=== PATIENT | female | born 1960 | race Caucasian/White ===

== ENCOUNTER → 2016-08-18 | Outpatient (CLI) | payer BC ==
--- NOTE | 2016-08-18 14:35 | CARD ---
APPROVED REPORT EXAM: Two-dimensional and M-mode echocardiogram with Doppler and color Doppler. Other Information Quality : GoodHR: 64bpm Rhythm : NSR INDICATION Atrial Fibrillation RISK FACTORS Hypertension Hyperlipidemia Family History 2D DIMENSIONS RVDd1.9 (2.9-3.5cm)Left Atrium(2D)3.6 (1.6-4.0cm) IVSd1.0 (0.7-1.1cm)Aortic Root(2D)2.8 (2.0-3.7cm) LVDd4.9 (3.9-5.9cm)LVOT Diameter2.0 (1.8-2.4cm) PWd1.0 (0.7-1.1cm)LVDs3.2 (2.5-4.0cm) FS (%) 34.0 %SV70.9 ml LVEF(%)62.7 (>50%) Aortic Valve AoV Peak Jose.129.9cm/sAoV VTI27.0cm AO Peak GR.6.7mmHgLVOT Peak Jose.106.2cm/s AO Mean GR.4mmHgAVA (VMAX)2.52cm2 Mitral Valve MV E Givaoztd93.3cm/sMV E Peak Gr.3mmHg MV DECEL [id number] A Urqihwrs89.9cm/s MV E Mean Gr.1mmHgE/A Ratio1.8 MV A [id number] Tricuspid Valve TR P. Omumdeek093pz/sTR Peak Gr.18mmHg Pulmonary Vein S1 Bjxedynr83.6cm/sD2 Fqgatzrs99.6cm/s PVa [id number] LEFT VENTRICLE The left ventricle is normal size. There is normal left ventricular wall thickness. The left ventricu lar systolic function is normal. The Ejection Fraction is 60-65%. There is normal LV segmental wall m otion. The left ventricular diastolic function and filling is normal for age. RIGHT VENTRICLE The right ventricle is normal size. There is normal right ventricular wall thickness. The right ventr icular systolic function is normal. ATRIA The left atrium size is normal. The right atrium size is normal. The interatrial septum is intact wit h no evidence for an atrial septal defect or patent foramen ovale as noted on 2-D or Doppler imaging. AORTIC VALVE The aortic valve is normal in structure and function. Doppler and Color Flow revealed no significant aortic regurgitation. There is no significant aortic valvular stenosis. There is no aortic valvular v egetation. MITRAL VALVE The mitral valve is normal in structure and function. There is no evidence of mitral valve prolapse. There is no mitral valve stenosis. Doppler and Color Flow revealed trace mitral regurgitation. TRICUSPID VALVE The tricuspid valve is normal in structure and function. Doppler and Color Flow revealed trace tricus pid regurgitation. The pulmonary artery systolic pressure is estimated at 23 mmHg. There is no tricus pid valve stenosis. PULMONIC VALVE The pulmonary valve is normal in structure and function. Doppler and Color Flow revealed no pulmonic valvular regurgitation. There is no pulmonic valvular stenosis. GREAT VESSELS The aortic root is normal in size. The ascending aorta is normal in size. The pulmonary artery is nor mal. The IVC is normal in size and collapses >50% with inspiration. PERICARDIAL EFFUSION There is no evidence of significant pericardial effusion. Critical Notification Critical Value: No <Conclusion> The left ventricular systolic function is normal. The Ejection Fraction is 60-65%. There is normal LV segmental wall motion. Trace mitral regurgitation. Trace tricuspid regurgitation. The pulmonary artery systolic pressure is estimated at 23 mmHg. There is no evidence of significant pericardial effusion.
== END | disposition home or self-care (01) ==
LOC: ECHO 10:55
PROVIDERS: ATTEND Internal Medicine Cardiovascular Disease
DX: I48.0 Paroxysmal atrial fibrillation (principal)
CPT/HCPCS: 93306

== ENCOUNTER → 2020-02-01 | Outpatient (CLI) | payer BC ==
--- NOTE | 2020-02-01 11:22 | CARD ---
MR#: [id number] Date of Study: 02/01/2020 Ordering Physician: PEG SANCHES, Referring Physician: PEG SANCHES, Tech: Jennifer Arreaga [facility] APPROVED REPORT EXAM: Two-dimensional and M-mode echocardiogram with Doppler and color Doppler. Other Information Quality : Good INDICATION Paroxysmal Atria Fibrillation 2D DIMENSIONS RVDd2.0 (2.9-3.5cm)Left Atrium(2D)3.0 (1.6-4.0cm) IVSd0.6 (0.7-1.1cm)Aortic Root(2D)2.7 (2.0-3.7cm) LVDd3.8 (3.9-5.9cm)LVOT Diameter1.9 (1.8-2.4cm) PWd0.6 (0.7-1.1cm)LVDs2.5 (2.5-4.0cm) FS (%) 33.4 %SV39.6 ml Aortic Valve AoV Peak Jose.119.8cm/sAoV VTI20.1cm AO Peak GR.5.7mmHgLVOT Peak Jose.114.9cm/s LVOT VTI 20.30cmAO Mean GR.3mmHg DOROTHEA (VMAX)2.78ok4NKA (VTI)3.01cm2 AI P 1/2 [id number] Mitral Valve MV E Ibpimjsk13.0cm/sMV DECEL [id number] MV A Igvkzunn85.8cm/sMV MZQ82fq E/A Ratio0.9MVA (PHT)3.07cm2 TDI E/Lateral E'8.0E/Medial E'11.2 Pulmonary Vein S1 Ayxnukln67.0cm/sD2 Vhkdiyrk53.2cm/s LEFT VENTRICLE The left ventricle is normal size. There is normal left ventricular wall thickness. The left ventricu lar systolic function is normal and the ejection fraction is within normal range. The Ejection Fracti on is 60-65%. There is normal LV segmental wall motion. Transmitral Doppler flow pattern is Grade I-a bnormal relaxation pattern. RIGHT VENTRICLE The right ventricle is normal size. The right ventricular systolic function is normal. ATRIA The left atrium size is normal. The right atrium size is normal. The interatrial septum is intact wit h no evidence for an atrial septal defect or patent foramen ovale as noted on 2-D or Doppler imaging. AORTIC VALVE The aortic valve is normal in structure and function. Doppler and Color Flow revealed trace aortic re gurgitation. There is no significant aortic valvular stenosis. MITRAL VALVE The mitral valve is normal in structure and function. There is no evidence of mitral valve prolapse. There is no mitral valve stenosis. Doppler and Color Flow revealed no mitral valve regurgitation note d. TRICUSPID VALVE The tricuspid valve is normal in structure and function. Doppler and Color Flow revealed no tricuspid valve regurgitation noted. There is no tricuspid valve stenosis. PULMONIC VALVE The pulmonic valve is not well visualized. Doppler and Color Flow revealed no pulmonic valvular regur gitation. There is no pulmonic valvular stenosis. GREAT VESSELS The aortic root is normal in size. The ascending aorta is not well seen. The IVC is normal in size an d collapses >50% with inspiration. PERICARDIAL EFFUSION There is no evidence of significant pericardial effusion. Critical Notification Critical Value: No <Conclusion> The left ventricle is normal size. The left ventricular systolic function is normal and the ejection fraction is within normal range. The Ejection Fraction is 60-65%. Doppler and Color Flow revealed trace aortic regurgitation. There is no significant aortic valvular stenosis. Doppler and Color Flow revealed no mitral valve regurgitation noted. Doppler and Color Flow revealed no tricuspid valve regurgitation noted. Signed by : César Valenzuela MD Electronically Approved : 02/01/2020 11:22:19
== END | disposition home or self-care (01) ==
LOC: ECHO 08:44
PROVIDERS: ATTEND Internal Medicine Cardiovascular Disease
DX: I48.0 Paroxysmal atrial fibrillation (principal)
CPT/HCPCS: 93306

== ENCOUNTER 2020-02-17 11:34 | Inpatient (IN) | payer BC ==
[~2020-02-17] VITALS: Ht 162.6 cm; Wt 80.0 kg
[2020-02-17] MEDS ORDERED: IV NORMAL SALINE 1000ML BAG 1,000 ML IV ONE ×3 (11:45→19:30)
--- NOTE | 2020-02-17 11:54 | PHYS DOC ---
Past Medical History Past Medical History: Cancer, Diabetes-Type II, Hypothyroid Additional Past Surgical Histo: Cranial carcinoma surgery Smoking Status: Never Smoker Alcohol Use: Occasionally Drug Use: None General Adult EDM: Chief Complaint: SYNCOPE HPI: HPI: Patient is a 59 year old [f__sex] who presents with [] Review of Systems: Review of Systems: Constitutional: Denies fever or chills Eyes: Denies redness or eye pain HENT: Denies nasal congestion or sore throat Respiratory: Denies cough or shortness of breath Cardiovascular: Denies chest pain or palpitations GI: Denies abdominal pain, nausea, or vomiting : Denies dysuria or hematuria Musculoskeletal: Denies back pain or joint pain Integument: Denies rash or skin lesions Neurologic: Denies headache, focal weakness or sensory changes Complete systems were reviewed and found to be within normal limits, except as documented in this note. Current Medications: Current Medications Medications (Trade) Dose Ordered Sig/Valerie Start Time Stop Time Status Last Admin Dose Admin Sodium Chloride 1,000 ml @ 1,000 mls/hr 1X ONCE 02/17/20 11:45 02/17/20 12:44 UNV Physical Exam: PE: Constitutional: Well developed, well nourished, no acute distress, non-toxic appearance HENT: Normocephalic, atraumatic, oropharynx moist Eyes: PERRL, EOMI, conjunctiva normal, no discharge Neck: Normal range of motion, no tenderness, supple Cardiovascular: Heart rate normal, regular rhythm Lungs & Thorax: Bilateral breath sounds clear to auscultation, no wheezing Abdomen: Soft, no tenderness Skin: Warm, dry, no erythema, no rash Back: No tenderness, no CVA tenderness Extremities: No tenderness, ROM intact, no edema Neurologic: Alert and oriented X 3, normal motor function, normal sensory function, no focal deficits noted Psychologic: Affect normal, judgment normal EKG: EKG: @1148 Sinus tachycardia at 107bpm, NO ST elevation, QRS 86ms, QT/QTc 322/435ms Radiology/Procedures: Radiology/Procedures: PROCEDURE: CT HEAD AND CERVICAL SPINE WO EXAM: CT Head without IV contrast INDICATION: Reason: syncope, head pain, neck pain / Spl. Instructions: / History: TECHNIQUE: Multi-detector row CT images were obtained of the head without the use of IV contrast. All CT scans performed at this facility utilize dose optimization techniques as appropriate to the exam, including the following: Automated exposure control and adjustment of the mA and/or KV according to patient size (this includes techniques or standardized protocols for targeted exams where dose is indication/reason for exam). COMPARISON: None FINDINGS: BRAIN PARENCHYMA: No evidence of acute intraparenchymal hemorrhage or infarct. No abnormal parenchymal density or mass. VENTRICLES & EXTRA-AXIAL SPACES: Ventricles are within normal limits. Basilar cisterns are patent. No pathologic extra-axial fluid collection or mass. ORBITS: Orbital contents are unremarkable. SINUSES: Visualized paranasal sinuses and mastoid air cells are clear. OSSEOUS & SOFT TISSUES: Calvarium and skull base are intact. IMPRESSION: No acute intracranial pathology. EXAM: CT Cervical Spine without IV contrast INDICATION: Reason: syncope, head pain, neck pain / Spl. Instructions: / History: TECHNIQUE: Multi-detector row CT images were obtained through the cervical spine without the use of IV contrast. Post-processing sagittal and coronal reconstructed images were obtained for interpretation. All CT scans performed at this facility utilize dose optimization techniques as appropriate to the exam, including the following: Automated exposure control and adjustment of the mA and/or KV according to patient size (this includes techniques or standardized protocols for targeted exams where dose is indication/reason for exam). COMPARISON: None FINDINGS: CRANIOCERVICAL JUNCTION: Unremarkable. ALIGNMENT: Mild reversal of cervical lordosis in the setting of multilevel cervical degenerative spondylosis. OSSEOUS: No evidence of fracture or bone destruction. There is evidence of mild ossification of posterior longitudinal ligament at C6. DISC SPACES: Multilevel disc degenerative changes are present FACET JOINTS: Unremarkable. SPINAL CANAL: Unremarkable. NEUROFORAMINA: Unremarkable. SOFT TISSUES: Unremarkable. Incidentally, the spinous process of C7 is partially excluded. IMPRESSION: Multilevel cervical degenerative spondylosis with no acute traumatic finding shown on CT. Electronically signed by: Catalino Romero MD (02/17/2020 12:28 PM) [id number] PROCEDURE: CHEST AP ONLY Single view chest dated 02/17/2020: No comparison available. Clinical Indication: Syncope. Findings: Single upright portable exam of the chest was performed. Heart size and mediastinal contours are within normal limits given technique. The lungs are clear without evidence of focal consolidation. Vascular interstitium is within normal limits. Impression:: Negative portable chest. Electronically signed by: Norris Yoon MD (02/17/2020 12:11 PM) [id number] Course & Med Decision Making: Course & Med Decision Making Pertinent Labs and Imaging studies reviewed. (See chart for details) [] Franci Disclaimer: Franci Disclaimer: This electronic medical record was generated, in whole or in part, using a voice recognition dictation system. Departure Departure Impression: Primary Impression: Syncope Qualified Codes: R55 - Syncope and collapse Additional Impressions: Hypothermia Qualified Codes: T68.XXXA - Hypothermia, initial encounter Small bowel obstruction Suspected 2019 novel coronavirus infection Referrals: JOE MCKENNA MD (PCP) Justicifation of Admission Dx: Justifications for Admission: Justification of Admission Dx: Yes Sepsis: End-Organ Dysfunction Comments: SBO, Septic shock COVID-19 Assessment: COVID-19 Patient Risks: Age 65 or older: No Sign of co-morbidity: No Exp to person + for COVID: No Exp to PUI: No Travel from affected area: No Lower respiratory symptoms: No Fever: Yes (Hypothermia) Other: Yes (Nausea and vomiting) PPE Use: Full PPE with N95 mask or PAPR: Yes Date and Time of Reassessment Date: Feb 17, 2020 Time: 15:40 Fluid Challenge Is the fluid challenge complet: No IBW Target Volume Used: Yes BMI > 30: Yes Vital Signs Vital Signs: Vital Signs Date Time Temp Pulse Resp B/P (MAP) Pulse Ox O2 Delivery O2 Flow Rate FiO2 02/18/20 11:03 79 18 143/69 (93) 100 Room Air 02/18/20 07:34 98.6 98.6 Temperature Source: Oral Respirations Respiratory Effort: Normal Cardiovascular Pulse Rhythm: Regular Heart: Nml S1, S2, no murmurs Lung Sounds Breath Sounds: Coarse Capillary Refil Capillary Refill: Rt Hand < 3 seconds Peripheral Pulse Pulse Location: Radial Pulse Strength: Normal (2+) Pulse Assessment Method: Palpation Integumentary Skin: Dry, Cool Skin Moisture: Dry Skin Turgor: Normal Skin Color: dry Fingernail Color: WNL Critical Care Time Critical care time was 30 minutes which includes time at bedside, spent in discussion of patient's care with specialists and/or family members, with interpretation of laboratory and/or radiological studies and is exclusive of procedures. NORRIS CANSECO DO Feb 17, 2020 11:54
--- NOTE | 2020-02-17 12:14 | RAD ---
Single view chest dated 02/17/2020: No comparison available. Clinical Indication: Syncope. Findings: Single upright portable exam of the chest was performed. Heart size and mediastinal contours are within normal limits given technique. The lungs are clear without evidence of focal consolidation. Vascular interstitium is within normal limits. Impression:: Negative portable chest. Electronically signed by: Norris Yoon MD (02/17/2020 12:11 PM) [id number]
[2020-02-17] MEDS ORDERED: ONDANSETRON PF 4 MG/2 ML VIAL. IVP ONE (12:15)
[2020-02-17] MEDS ORDERED: FAMOTIDINE 20 MG/2 ML VIAL IVP ONE (12:15)
--- NOTE | 2020-02-17 12:31 | RAD ---
EXAM: CT Head without IV contrast INDICATION: Reason: syncope, head pain, neck pain / Spl. Instructions: / History: TECHNIQUE: Multi-detector row CT images were obtained of the head without the use of IV contrast. All CT scans performed at this facility utilize dose optimization techniques as appropriate to the exam, including the following: Automated exposure control and adjustment of the mA and/or KV according to patient size (this includes techniques or standardized protocols for targeted exams where dose is indication/reason for exam). COMPARISON: None FINDINGS: BRAIN PARENCHYMA: No evidence of acute intraparenchymal hemorrhage or infarct. No abnormal parenchymal density or mass. VENTRICLES & EXTRA-AXIAL SPACES: Ventricles are within normal limits. Basilar cisterns are patent. No pathologic extra-axial fluid collection or mass. ORBITS: Orbital contents are unremarkable. SINUSES: Visualized paranasal sinuses and mastoid air cells are clear. OSSEOUS & SOFT TISSUES: Calvarium and skull base are intact. IMPRESSION: No acute intracranial pathology. EXAM: CT Cervical Spine without IV contrast INDICATION: Reason: syncope, head pain, neck pain / Spl. Instructions: / History: TECHNIQUE: Multi-detector row CT images were obtained through the cervical spine without the use of IV contrast. Post-processing sagittal and coronal reconstructed images were obtained for interpretation. All CT scans performed at this facility utilize dose optimization techniques as appropriate to the exam, including the following: Automated exposure control and adjustment of the mA and/or KV according to patient size (this includes techniques or standardized protocols for targeted exams where dose is indication/reason for exam). COMPARISON: None FINDINGS: CRANIOCERVICAL JUNCTION: Unremarkable. ALIGNMENT: Mild reversal of cervical lordosis in the setting of multilevel cervical degenerative spondylosis. OSSEOUS: No evidence of fracture or bone destruction. There is evidence of mild ossification of posterior longitudinal ligament at C6. DISC SPACES: Multilevel disc degenerative changes are present FACET JOINTS: Unremarkable. SPINAL CANAL: Unremarkable. NEUROFORAMINA: Unremarkable. SOFT TISSUES: Unremarkable. Incidentally, the spinous process of C7 is partially excluded. IMPRESSION: Multilevel cervical degenerative spondylosis with no acute traumatic finding shown on CT. Electronically signed by: Catalino Romero MD (02/17/2020 12:28 PM) [id number]
[2020-02-17] MEDS ORDERED: diphenhydrAMINE 50 MG/ML VIAL IVP ONE (14:00)
[2020-02-17] MEDS ORDERED: METOCLOPRAMIDE HCL 10 MG/2 ML VIAL. IVP ONE (14:00)
[2020-02-17 14:20] LABS: BASO # 0.1 x10^3/uL (0.0-0.2); BASO % 0 % (0-3); EOS % 0 % (0-3); HEMATOCRIT 52.7 % (36.0-47.0); HEMOGLOBIN 17.8 g/dL (12.0-15.5); LYMPH # 1.6 x10^3/uL (1.0-4.8); LYMPH % 11 % (24-48); MEAN CORPUSCULAR HEMOGLOBIN 30 pg (25-35); MEAN CORPUSCULAR HGB CONC 34 g/dL (31-37); MEAN CORPUSCULAR VOLUME 88 fL (79-100); MONO # 0.6 x10^3/uL (0.0-1.1); MONO % 4 % (0-9); NEUT # 12.4 x10^3/uL (1.8-7.7); NEUT % 85 % (31-73); PLATELET COUNT 187 x10^3/uL (140-400); RED CELL DISTRIBUTION WIDTH 14.1 % (11.5-14.5); WHITE BLOOD COUNT 14.7 x10^3/uL (4.0-11.0)
[2020-02-17 14:23] LABS: CALCIUM 10.2 mg/dL (8.5-10.1); CREATININE 1.2 mg/dL (0.6-1.0); GFR 46.1; POTASSIUM 4.8 mmol/L (3.5-5.1)
[2020-02-17 14:35] LABS: ALBUMIN 4.6 g/dL (3.4-5.0); MAGNESIUM 2.7 mg/dL (1.8-2.4); TOTAL PROTEIN 9.2 g/dL (6.4-8.2)
[2020-02-17] MEDS ORDERED: IV NORMAL SALINE 500ML BAG 500 ML IV ONE (15:15)
[2020-02-17] MEDS ORDERED: PIPERACILLIN/TAZOBACTAM 4.5 GM in IV NORMAL SALINE 100ML 100 ML IV ONE (15:15)
[2020-02-17] MEDS ORDERED: IOHEXOL 300 MG/ML 100ML VIAL. IV ONE (15:30)
[2020-02-17 15:33] LABS: BILIRUBIN,URINE NEGATIVE (NEG); CLARITY,URINE CLEAR; COLOR,URINE YELLOW; NITRITE,URINE NEGATIVE (NEG); PH,URINE 5.5 (<5.0-8.0); PROTEIN,URINE 30 mg/dL (NEG-TRACE); UROBILINOGEN,URINE 0.2 mg/dL (0.2 mg/dL)
[2020-02-17 15:39] LABS: SQUAMOUS EPITHELIAL CELL,UR MOD /LPF
[2020-02-17 15:40] LABS: BACTERIA,URINE MODERATE /HPF (0-FEW)
[2020-02-17 15:41] LABS: RBC,URINE 0 /HPF (0-2); WBC,URINE OCC /HPF (0-4)
[2020-02-17 15:42] LABS: YEAST,URINE PRESENT /HPF
--- NOTE | 2020-02-17 16:06 | RAD ---
EXAM: CT Chest, Abdomen, and Pelvis with IV contrast INDICATION: Reason: hypothermia, lactic acidosis, N/V / Spl. Instructions: IV OMNI 300 60 MLS / History: TECHNIQUE: Multi-detector row CT images were acquired from the thoracic inlet through the ischial tuberosities with the use of IV contrast. Sagittal and coronal images were acquired from the transaxial data. All CT scans performed at this facility utilize dose optimization techniques as appropriate to the exam, including the following: Automated exposure control and adjustment of the mA and/or KV according to patient size (this includes techniques or standardized protocols for targeted exams where dose is indication/reason for exam). IV CONTRAST: Administered ORAL CONTRAST: Not administered COMPARISON: None FINDINGS: CHEST: CARDIOVASCULAR: Unremarkable MEDIASTINUM & GM: No adenopathy or masses. Mild diffuse nonspecific thickening of the thoracic esophageal wall. LUNGS: No pulmonary infiltrate, nodule, or other focal abnormality. PLEURAL SPACE: No pleural effusions or pneumothorax. OSSEOUS & SOFT TISSUE: Unremarkable ABDOMEN/PELVIS: LIVER: Unremarkable BILIARY SYSTEM: Cholecystectomy. Bile ducts are not dilated. PANCREAS: Unremarkable SPLEEN: Unremarkable ADRENALS: Unremarkable KIDNEYS & URETERS: Unremarkable BLADDER: Unremarkable REPRODUCTIVE ORGANS: Absent uterus. Nonvisualized right ovary. Unremarkable left adnexa suggesting an atrophic left ovary. No adnexal mass. GASTROINTESTINAL: Stomach shows surgical changes from previous gastric sleeve procedure. There is fluid distention of multiple small bowel loops without wall thickening or mesenteric soft tissue stranding. There is collapse of the distal small bowel loops. Transition point is suspected in the right upper quadrant abdomen (coronal image 26 of series 8). The appendix is not definitively identified but there are no findings suggestive of acute appendicitis. MESENTERY/PERITONEUM/RETROPERITONEUM: Unremarkable VASCULAR: Slitlike IVC. Unremarkable abdominal aorta. LYMPH NODES: No adenopathy OSSEOUS & SOFT TISSUES: Unremarkable IMPRESSION: 1. No acute pathology in the chest with nonspecific mild wall thickening of the thoracic esophagus noted incidentally. 2. Previous gastric sleeve procedure with findings of small bowel obstruction, possible transition point in the right mid abdomen. No findings of bowel perforation or abscess formation. 3. Slitlike IVC, potential sign of intravascular volume depletion. Electronically signed by: Catalino Romero MD (02/17/2020 4:03 PM) [id number]
[2020-02-17] MEDS ORDERED: DEXTROSE 50% 25 GM / 50ML DISP.SYRIN. IV PRN (16:15)
[2020-02-17] MEDS ORDERED: ONDANSETRON PF 4 MG/2 ML VIAL. IV PRN ×2 (16:15→18:45)
[2020-02-17] MEDS: INSULIN LISPRO 300 UNITS/3 ML VIAL. SQ SCH (17:00)
[2020-02-17 17:35] VITALS: BP 149/87
--- NOTE | 2020-02-17 17:35 | NUR ---
Patient arrived via cart from ED with RENETTA Mathis. Patient able to ambulate to bed with assistance, patient placed on monitor and admission questions asked. Dr. Robles paged for orders.
[2020-02-17] MEDS: IV NORMAL SALINE 1000ML BAG 1,000 ML IV SCH (18:45)
[2020-02-17] MEDS ORDERED: MORPHINE SULFATE 2 MG/ML VIAL. IV PRN (18:45)
[2020-02-17 19:00] VITALS: BP 116/68
[2020-02-17 20:00] VITALS: BP 126/75
[2020-02-17 21:00] VITALS: BP 137/74
--- NOTE | 2020-02-17 21:21 | PDOC2 ---
CONSULT Date of Consult Date of Consult DATE: 02/17/20 TIME: 21:17 Reason for Consult Reason for Consult: N/V, syncope Referring Physician Referring Physician: Dr. Nunes Identification/Chief Complaint Chief Complaint N/V, syncope Source Source: Chart review, Patient History of Present Illness Reason for Visit: 59 yo F with c/o N/V with resultant syncope. Denies previous episodes. Has been passing flatus and stools. Seen in ICU and reports feeling better. Denies significant abd pain. N/V currently resolved. Past Medical History Endocrine: Diabetes Past Surgical History Past Surgical History: Cholecystectomy, Hysterectomy, Other (gastric sleeve) Family History Family History: No Significant Social History No ALCOHOL: rare Current Problem List Problem List Problems Medical Problems: (1) Hypothermia Status: Acute (2) Small bowel obstruction Status: Acute (3) Syncope Status: Acute Current Medications Current Medications Current Medications Sodium Chloride 1,000 ml @ 1,000 mls/hr 1X ONCE IV Last administered on 02/17/20at 12:22; Start 02/17/20 at 11:45; Stop 02/17/20 at 12:44; Status DC Famotidine (Pepcid Vial) 20 mg 1X ONCE IVP Last administered on 02/17/20at 12:22; Start 02/17/20 at 12:15; Stop 02/17/20 at 12:16; Status DC Ondansetron HCl (Zofran) 4 mg 1X ONCE IVP Last administered on 02/17/20at 12:22; Start 02/17/20 at 12:15; Stop 02/17/20 at 12:16; Status DC Metoclopramide HCl (Reglan Vial) 10 mg 1X ONCE IVP Last administered on 02/17/20at 14:05; Start 02/17/20 at 14:00; Stop 02/17/20 at 14:01; Status DC Diphenhydramine HCl (Benadryl) 25 mg 1X ONCE IVP Last administered on 02/17/20at 14:05; Start 02/17/20 at 14:00; Stop 02/17/20 at 14:01; Status DC Piperacillin Sod/ Tazobactam Sod 4.5 gm/Sodium Chloride 100 ml @ 200 mls/hr 1X ONCE IV Last administered on 02/17/20at 16:09; Start 7/12/20 at 15:15; Stop 02/17/20 at 15:44; Status DC Sodium Chloride 1,000 ml @ 1,000 mls/hr 1X ONCE IV Last administered on 02/17/20at 16:10; Start 02/17/20 at 15:15; Stop 02/17/20 at 16:14; Status DC Sodium Chloride 500 ml @ 500 mls/hr 1X ONCE IV ; Start 02/17/20 at 15:15; Stop 02/17/20 at 16:14; Status DC Iohexol (Omnipaque 300 Mg/ml) 60 ml 1X ONCE IV ; Start 02/17/20 at 15:30; Stop 02/17/20 at 15:33; Status DC Ondansetron HCl (Zofran) 4 mg PRN Q8HRS PRN IV NAUSEA/VOMITING; Start 02/17/20 at 16:15; Stop 02/17/20 at 18:37; Status DC Insulin Human Lispro (HumaLOG) 0-5 UNITS TIDWMEALS SQ ; Start 02/17/20 at 17:00 Dextrose (Dextrose 50%-Water Syringe) 12.5 gm PRN Q15MIN PRN IV SEE COMMENTS; Start 02/17/20 at 16:15 Ondansetron HCl (Zofran) 4 mg PRN Q4HRS PRN IV NAUSEA/VOMITING; Start 02/17/20 at 18:45; Stop 02/18/20 at 18:44 Sodium Chloride 1,000 ml @ 150 mls/hr Q6H40M IV ; Start 02/17/20 at 18:45 Morphine Sulfate (Morphine Sulfate) 2 mg PRN Q2HR PRN IV PAIN; Start 02/17/20 at 18:45 Sodium Chloride 1,000 ml @ 1,000 mls/hr 1X ONCE IV ; Start 02/17/20 at 19:30; Stop 02/17/20 at 20:29; Status DC Allergies Allergies: Coded Allergies: No Known Drug Allergies (Unverified , 02/17/20) ROS Gastrointestinal: Yes Nausea, Yes Vomiting Neurological: Yes Other (syncope) Physical Exam General: Alert, Oriented X3, Cooperative, No acute distress HEENT: Atraumatic Lungs: Normal air movement Abdomen: Soft, No tenderness Extremities: No clubbing, No cyanosis Skin: No rashes, No breakdown Neuro: Normal speech, Sensation intact Psych/Mental Status: Mental status NL, Mood NL Vitals VITALS Vital Signs Date Time Temp Pulse Resp B/P (MAP) Pulse Ox O2 Delivery O2 Flow Rate FiO2 02/17/20 17:35 Room Air 02/17/20 17:35 98.3 100 27 149/87 (107) 100 98.3 Labs Labs Laboratory Tests Test 02/17/20 13:30 02/17/20 13:50 02/17/20 15:25 02/17/20 17:40 Sodium Level 136 mmol/L (136-145) Potassium Level 4.8 mmol/L (3.5-5.1) Chloride Level 97 mmol/L (98-107) Carbon Dioxide Level 23 mmol/L (21-32) Anion Gap 16 (6-14) Blood Urea Nitrogen 12 mg/dL (7-20) Creatinine 1.2 mg/dL (0.6-1.0) Estimated GFR (Cockcroft-Gault) 46.1 BUN/Creatinine Ratio 10 (6-20) Glucose Level 268 mg/dL (70-99) Calcium Level 10.2 mg/dL (8.5-10.1) Magnesium Level 2.7 mg/dL (1.8-2.4) Total Bilirubin 1.0 mg/dL (0.2-1.0) Aspartate Amino Transf (AST/SGOT) 30 U/L (15-37) Alanine Aminotransferase (ALT/SGPT) 37 U/L (14-59) Alkaline Phosphatase 86 U/L (46-116) Creatine Kinase 115 U/L (26-192) Creatine Kinase MB (Mass) 5.2 ng/mL (0.0-3.6) Creatine Kinase MB Relative Index 4.5 % (0-4) Troponin I Quantitative < 0.017 ng/mL (0.000-0.055) Total Protein 9.2 g/dL (6.4-8.2) Albumin 4.6 g/dL (3.4-5.0) Albumin/Globulin Ratio 1.0 (1.0-1.7) Acetone Level Neg (NEG) White Blood Count 14.7 x10^3/uL (4.0-11.0) Red Blood Count 6.00 x10^6/uL (3.50-5.40) Hemoglobin 17.8 g/dL (12.0-15.5) Hematocrit 52.7 % (36.0-47.0) Mean Corpuscular Volume 88 fL (79-100) Mean Corpuscular Hemoglobin 30 pg (25-35) Mean Corpuscular Hemoglobin Concent 34 g/dL (31-37) Red Cell Distribution Width 14.1 % (11.5-14.5) Platelet Count 187 x10^3/uL (140-400) Neutrophils (%) (Auto) 85 % (31-73) Lymphocytes (%) (Auto) 11 % (24-48) Monocytes (%) (Auto) 4 % (0-9) Eosinophils (%) (Auto) 0 % (0-3) Basophils (%) (Auto) 0 % (0-3) Neutrophils # (Auto) 12.4 x10^3/uL (1.8-7.7) Lymphocytes # (Auto) 1.6 x10^3/uL (1.0-4.8) Monocytes # (Auto) 0.6 x10^3/uL (0.0-1.1) Eosinophils # (Auto) 0.0 x10^3/uL (0.0-0.7) Basophils # (Auto) 0.1 x10^3/uL (0.0-0.2) Lactic Acid Level 4.9 mmol/L (0.4-2.0) 5.3 mmol/L (0.4-2.0) Urine Collection Type Unknown Urine Color Yellow Urine Clarity Clear Urine pH 5.5 (<5.0-8.0) Urine Specific [place] >=1.030 (1.000-1.030) Urine Protein 30 mg/dL (NEG-TRACE) Urine Glucose (UA) >=1000 mg/dL (NEG) Urine Ketones (Stick) 15 mg/dL (NEG) Urine Blood Negative (NEG) Urine Nitrite Negative (NEG) Urine Bilirubin Negative (NEG) Urine Urobilinogen Dipstick 0.2 mg/dL (0.2 mg/dL) Urine Leukocyte Esterase Negative (NEG) Urine RBC 0 /HPF (0-2) Urine WBC Occ /HPF (0-4) Urine Squamous Epithelial Cells Mod /LPF Urine Bacteria Moderate /HPF (0-FEW) Urine Mucus Mod /LPF Urine Yeast Present /HPF Test 02/17/20 18:50 02/17/20 20:19 Troponin I Quantitative < 0.017 ng/mL (0.000-0.055) Glucose (Fingerstick) 171 mg/dL (70-99) Laboratory Tests Test 02/17/20 13:30 02/17/20 13:50 02/17/20 15:25 02/17/20 17:40 Sodium Level 136 mmol/L (136-145) Potassium Level 4.8 mmol/L (3.5-5.1) Chloride Level 97 mmol/L (98-107) Carbon Dioxide Level 23 mmol/L (21-32) Anion Gap 16 (6-14) Blood Urea Nitrogen 12 mg/dL (7-20) Creatinine 1.2 mg/dL (0.6-1.0) Estimated GFR (Cockcroft-Gault) 46.1 BUN/Creatinine Ratio 10 (6-20) Glucose Level 268 mg/dL (70-99) Calcium Level 10.2 mg/dL (8.5-10.1) Magnesium Level 2.7 mg/dL (1.8-2.4) Total Bilirubin 1.0 mg/dL (0.2-1.0) Aspartate Amino Transf (AST/SGOT) 30 U/L (15-37) Alanine Aminotransferase (ALT/SGPT) 37 U/L (14-59) Alkaline Phosphatase 86 U/L (46-116) Creatine Kinase 115 U/L (26-192) Creatine Kinase MB (Mass) 5.2 ng/mL (0.0-3.6) Creatine Kinase MB Relative Index 4.5 % (0-4) Troponin I Quantitative < 0.017 ng/mL (0.000-0.055) Total Protein 9.2 g/dL (6.4-8.2) Albumin 4.6 g/dL (3.4-5.0) Albumin/Globulin Ratio 1.0 (1.0-1.7) Acetone Level Neg (NEG) White Blood Count 14.7 x10^3/uL (4.0-11.0) Red Blood Count 6.00 x10^6/uL (3.50-5.40) Hemoglobin 17.8 g/dL (12.0-15.5) Hematocrit 52.7 % (36.0-47.0) Mean Corpuscular Volume 88 fL (79-100) Mean Corpuscular Hemoglobin 30 pg (25-35) Mean Corpuscular Hemoglobin Concent 34 g/dL (31-37) Red Cell Distribution Width 14.1 % (11.5-14.5) Platelet Count 187 x10^3/uL (140-400) Neutrophils (%) (Auto) 85 % (31-73) Lymphocytes (%) (Auto) 11 % (24-48) Monocytes (%) (Auto) 4 % (0-9) Eosinophils (%) (Auto) 0 % (0-3) Basophils (%) (Auto) 0 % (0-3) Neutrophils # (Auto) 12.4 x10^3/uL (1.8-7.7) Lymphocytes # (Auto) 1.6 x10^3/uL (1.0-4.8) Monocytes # (Auto) 0.6 x10^3/uL (0.0-1.1) Eosinophils # (Auto) 0.0 x10^3/uL (0.0-0.7) Basophils # (Auto) 0.1 x10^3/uL (0.0-0.2) Lactic Acid Level 4.9 mmol/L (0.4-2.0) 5.3 mmol/L (0.4-2.0) Urine Collection Type Unknown Urine Color Yellow Urine Clarity Clear Urine pH 5.5 (<5.0-8.0) Urine Specific [place] >=1.030 (1.000-1.030) Urine Protein 30 mg/dL (NEG-TRACE) Urine Glucose (UA) >=1000 mg/dL (NEG) Urine Ketones (Stick) 15 mg/dL (NEG) Urine Blood Negative (NEG) Urine Nitrite Negative (NEG) Urine Bilirubin Negative (NEG) Urine Urobilinogen Dipstick 0.2 mg/dL (0.2 mg/dL) Urine Leukocyte Esterase Negative (NEG) Urine RBC 0 /HPF (0-2) Urine WBC Occ /HPF (0-4) Urine Squamous Epithelial Cells Mod /LPF Urine Bacteria Moderate /HPF (0-FEW) Urine Mucus Mod /LPF Urine Yeast Present /HPF Test 02/17/20 18:50 02/17/20 20:19 Troponin I Quantitative < 0.017 ng/mL (0.000-0.055) Glucose (Fingerstick) 171 mg/dL (70-99) Images Images Ct with concern for SB dilation, IVC small c/w dehydration Assessment/Plan Assessment/Plan N/V with resultant dehydration resulting in syncope agree with ICU observation and hydration. No immediate surgical plans, benign abd. Thanks for consult! NATIVIDAD CUNNINGHAM MD Feb 17, 2020 21:21
[2020-02-17 22:00] VITALS: BP 128/79
[2020-02-17 23:00] VITALS: BP 136/74
[2020-02-18] VITALS (15 sets, daily range): BP systolic 115–152; BP diastolic 63–74
[2020-02-18] MEDS: IV NORMAL SALINE 1000ML BAG 1,000 ML IV SCH ×2 (01:41→08:42)
[2020-02-18 05:52] LABS: BASO # 0.1 x10^3/uL (0.0-0.2); BASO % 1 % (0-3); EOS % 1 % (0-3); HEMATOCRIT 41.1 % (36.0-47.0); HEMOGLOBIN 13.9 g/dL (12.0-15.5); LYMPH # 1.3 x10^3/uL (1.0-4.8); LYMPH % 16 % (24-48); MEAN CORPUSCULAR HEMOGLOBIN 29 pg (25-35); MEAN CORPUSCULAR HGB CONC 34 g/dL (31-37); MEAN CORPUSCULAR VOLUME 87 fL (79-100); MONO # 0.6 x10^3/uL (0.0-1.1); MONO % 7 % (0-9); NEUT # 6.2 x10^3/uL (1.8-7.7); NEUT % 76 % (31-73); PLATELET COUNT 149 x10^3/uL (140-400); RED BLOOD COUNT 4.72 x10^6/uL (3.50-5.40); RED CELL DISTRIBUTION WIDTH 14.1 % (11.5-14.5); WHITE BLOOD COUNT 8.1 x10^3/uL (4.0-11.0)
[2020-02-18 06:21] LABS: ALBUMIN 3.1 g/dL (3.4-5.0); ALBUMIN/GLOBULIN RATIO 0.9 (1.0-1.7); CREATININE 0.9 mg/dL (0.6-1.0); GFR 64.3; POTASSIUM 4.8 mmol/L (3.5-5.1); TOTAL BILIRUBIN 0.7 mg/dL (0.2-1.0); TOTAL PROTEIN 6.6 g/dL (6.4-8.2)
[2020-02-18] MEDS: INSULIN LISPRO 300 UNITS/3 ML VIAL. SQ SCH ×2 (08:00→12:00)
--- NOTE | 2020-02-18 08:48 | PDOC1 ---
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 EMS reports there was a hole in the drywall where pt his her head. unknown LOC. pt reporting fatigue, heartburn and nausea and vomiting x 4 on 02/17/2020. She suddenly started feeling nauseated at 10 AM on 02/17/2020. Last meal was on 02/16/2020 in the afternoon she had reheated pizza and ice cream, noted the pizza tasted "off". She ate home-cooked eggs and hashbrowns for breakfast on 02/16/2020 her also ate this and he has not been feeling any symptoms. CT head negative, CT abdomen pelvis made note of gastric sleeve and possible small bowel obstruction with transition point in the mid abdomen. She has been passing gas no bowel movement however she did have a bowel movement on Tuesday. Noted initially diaphoretic - oral/axillary temp of 90.5, rectal of 96.8. Sinus tachycardia at 107bpm, NO ST elevation, QRS 86ms, QT/QTc 322/435ms WBC 14.7, Hb 17.8, platelets 187, NA 136, K4.8, BUN 12, CR 1.2, lactate 5.3, calcium 10.2 mag 2.7, troponin negative x3, albumin 3.1, glucose 268. Had been seen by surgery when admitted on 02/17/2020 and recommended n.p.o. for the possible SBO. 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 Seen bedside for H&P today. Today WBC normalized labs all improved on IV fluids. She has no further nausea no further vomiting and is passing flatus. She is asking for a diet now. Past Medical History Endocrine: Diabetes, Hypothyroidism Past Surgical History Past Surgical History: Cholecystectomy, Hysterectomy, Other (gastric sleeve) Family History Family History: No Significant Social History Smoke: No ALCOHOL: rare Current Problem List Problem List Problems Medical Problems: (1) Hypothermia Status: Acute (2) Small bowel obstruction Status: Acute (3) Syncope Status: Acute Current Medications Current Medications Current Medications Sodium Chloride 1,000 ml @ 1,000 mls/hr 1X ONCE IV Last administered on 02/17/20at 12:22; Start 02/17/20 at 11:45; Stop 02/17/20 at 12:44; Status DC Famotidine (Pepcid Vial) 20 mg 1X ONCE IVP Last administered on 02/17/20at 12:22; Start 02/17/20 at 12:15; Stop 02/17/20 at 12:16; Status DC Ondansetron HCl (Zofran) 4 mg 1X ONCE IVP Last administered on 02/17/20at 12:22; Start 02/17/20 at 12:15; Stop 02/17/20 at 12:16; Status DC Metoclopramide HCl (Reglan Vial) 10 mg 1X ONCE IVP Last administered on 02/17/20at 14:05; Start 02/17/20 at 14:00; Stop 02/17/20 at 14:01; Status DC Diphenhydramine HCl (Benadryl) 25 mg 1X ONCE IVP Last administered on 02/17/20at 14:05; Start 02/17/20 at 14:00; Stop 02/17/20 at 14:01; Status DC Piperacillin Sod/ Tazobactam Sod 4.5 gm/Sodium Chloride 100 ml @ 200 mls/hr 1X ONCE IV Last administered on 02/17/20at 16:09; Start 02/17/20 at 15:15; Stop 02/17/20 at 15:44; Status DC Sodium Chloride 1,000 ml @ 1,000 mls/hr 1X ONCE IV Last administered on 02/17/20at 16:10; Start 02/17/20 at 15:15; Stop 02/17/20 at 16:14; Status DC Sodium Chloride 500 ml @ 500 mls/hr 1X ONCE IV ; Start 02/17/20 at 15:15; Stop 02/17/20 at 16:14; Status DC Iohexol (Omnipaque 300 Mg/ml) 60 ml 1X ONCE IV ; Start 02/17/20 at 15:30; Stop 02/17/20 at 15:33; Status DC Ondansetron HCl (Zofran) 4 mg PRN Q8HRS PRN IV NAUSEA/VOMITING; Start 02/17/20 at 16:15; Stop 02/17/20 at 18:37; Status DC Insulin Human Lispro (HumaLOG) 0-5 UNITS TIDWMEALS SQ ; Start 02/17/20 at 17:00 Dextrose (Dextrose 50%-Water Syringe) 12.5 gm PRN Q15MIN PRN IV SEE COMMENTS; Start 02/17/20 at 16:15 Ondansetron HCl (Zofran) 4 mg PRN Q4HRS PRN IV NAUSEA/VOMITING; Start 02/17/20 at 18:45; Stop 02/18/20 at 18:44 Sodium Chloride 1,000 ml @ 150 mls/hr Q6H40M IV Last administered on 02/18/20at 01:41; Start 02/17/20 at 18:45 Morphine Sulfate (Morphine Sulfate) 2 mg PRN Q2HR PRN IV PAIN; Start 02/17/20 at 18:45 Sodium Chloride 1,000 ml @ 1,000 mls/hr 1X ONCE IV Last administered on 02/17/20at 20:00; Start 02/17/20 at 19:30; Stop 02/17/20 at 20:29; Status DC Allergies Allergies: Coded Allergies: No Known Drug Allergies (Unverified , 02/17/20) ROS General: No: Chills, Night Sweats, Fatigue, Malaise, Appetite, Other PSYCHOLOGICAL ROS: No: Anxiety, Behavioral Disorder, Concentration difficultie, Decreased libido, Depression, Disorientation, Hallucinations, Hostility, Irritablity, Memory difficulties, Mood Swings, Obsessive thoughts, Physical abuse, Sexual abuse, Sleep disturbances, Suicidal ideation, Other Eyes: No Blurry vision, No Decreased vision, No Double vision, No Dry eyes, No Excessive tearing, No Eye Pain, No Itchy Eyes, No Loss of vision, No Photophobia, No Scotomata, No Uses contacts, No Uses glasses, No Other HEENT: No: Heacaches, Visual Changes, Hearing change, Nasal congestion, Nasal discharge, Oral lesions, Sinus pain, Sore Throat, Epistaxis, Sneezing, Snoring, Tinnitus, Vertigo, Vocal changes, Other ALLERGY AND IMMUNOLOGY: No: Hives, Insect Bite Sensitivity, Itchy/Watery Eyes, Nasal Congestion, Post Nasal Drip, Seasonal Allergies, Other Hematological and Lymphatic: No: Bleeding Problems, Blood Clots, Blood Transfusions, Brusing, Night Sweats, Pallor, Swollen Lymph Nodes, Other ENDOCRINE: No: Breast Changes, Galactorrhea, Hair Pattern Changes, Hot Flashes, Malaise/lethargy, Mood Swings, Palpitations, Polydipsia/polyuria, Skin Changes, Temperature Intolerance, Unexpected Weight Changes, Other Breast: No New/Changing Breast Lumps, No Nipple changes, No Nipple discharge, No Other Respiratory: No: Cough, Hemoptysis, Orthopnea, Pleuritic Pain, Shortness of breath, SOB with excertion, Sputum Changes, Stridor, Tachypnea, Wheezing, Other Cardiovascular: No Chest Pain, No Palpitations, No Orthopnea, No Paroxysmal Noc. Dyspnea, No Edema, No Lt Headedness, No Other Gastrointestinal: Yes Nausea, Yes Vomiting; No Abdominal Pain, No Diarrhea, No Constipation, No Melena, No Hematochezia, No Other Genitourinary: No Dysuria, No Frequency, No Incontinence, No Hematuria, No Retention, No Discharge, No Urgency, No Pain, No Flank Pain, No Other, No , No , No , No , No , No , No Musculoskeletal: No Gait Disturbance, No Joint Pain, No Joint Stiffness, No Joint Swelling, No Muscle Pain, No Muscular Weakness, No Pain In:, No Swelling In:, No Other Neurological: No Behavorial Changes, No Bowel/Bladder ControlChng, No Confusion, No Dizziness, No Gait Disturbance, No Headaches, No Impaired Coord/balance, No Memory Loss, No Numbness/Tingling, No Seizures, No Speech Problems, No Tremors, No Visual Changes, No Weakness, No Other Skin: No Dry Skin, No Eczema, No Hair Changes, No Lumps, No Mole Changes, No Mottling, No Nail Changes, No Pruritus, No Rash, No Skin Lesion Changes, No Other, No Acne Physical Exam General: Alert, Oriented X3, Cooperative, No acute distress HEENT: Atraumatic, PERRLA, EOMI, Mucous membr. moist/pink Lungs: Clear to auscultation, Normal air movement Heart: S1S2, RRR, no thrills, no rubs, no gallops, no murmurs Abdomen: Normal bowel sounds, Soft, No tenderness, No hepatosplenomegaly, No masses Rectal Exam: not examined Extremities: No clubbing, No cyanosis, No edema, Normal pulses, No tenderness/swelling Skin: No rashes, No breakdown, No significant lesion Neuro: Normal gait, Normal speech, Strength at 5/5 X4 ext, Normal tone, Sensation intact, Cranial nerves 3-12 NL, Reflexes 2+ Psych/Mental Status: Mental status NL, Mood NL Vitals Vitals Vital Signs Date Time Temp Pulse Resp B/P (MAP) Pulse Ox O2 Delivery O2 Flow Rate FiO2 02/18/20 07:34 86 18 132/66 (88) 98 Room Air 02/18/20 04:00 97.8 97.8 Labs Labs Laboratory Tests Test 02/17/20 13:30 02/17/20 13:50 02/17/20 15:25 02/17/20 17:40 Sodium Level 136 mmol/L (136-145) Potassium Level 4.8 mmol/L (3.5-5.1) Chloride Level 97 mmol/L (98-107) Carbon Dioxide Level 23 mmol/L (21-32) Anion Gap 16 (6-14) Blood Urea Nitrogen 12 mg/dL (7-20) Creatinine 1.2 mg/dL (0.6-1.0) Estimated GFR (Cockcroft-Gault) 46.1 BUN/Creatinine Ratio 10 (6-20) Glucose Level 268 mg/dL (70-99) Calcium Level 10.2 mg/dL (8.5-10.1) Magnesium Level 2.7 mg/dL (1.8-2.4) Total Bilirubin 1.0 mg/dL (0.2-1.0) Aspartate Amino Transf (AST/SGOT) 30 U/L (15-37) Alanine Aminotransferase (ALT/SGPT) 37 U/L (14-59) Alkaline Phosphatase 86 U/L (46-116) Creatine Kinase 115 U/L (26-192) Creatine Kinase MB (Mass) 5.2 ng/mL (0.0-3.6) Creatine Kinase MB Relative Index 4.5 % (0-4) Troponin I Quantitative < 0.017 ng/mL (0.000-0.055) Total Protein 9.2 g/dL (6.4-8.2) Albumin 4.6 g/dL (3.4-5.0) Albumin/Globulin Ratio 1.0 (1.0-1.7) Acetone Level Neg (NEG) White Blood Count 14.7 x10^3/uL (4.0-11.0) Red Blood Count 6.00 x10^6/uL (3.50-5.40) Hemoglobin 17.8 g/dL (12.0-15.5) Hematocrit 52.7 % (36.0-47.0) Mean Corpuscular Volume 88 fL (79-100) Mean Corpuscular Hemoglobin 30 pg (25-35) Mean Corpuscular Hemoglobin Concent 34 g/dL (31-37) Red Cell Distribution Width 14.1 % (11.5-14.5) Platelet Count 187 x10^3/uL (140-400) Neutrophils (%) (Auto) 85 % (31-73) Lymphocytes (%) (Auto) 11 % (24-48) Monocytes (%) (Auto) 4 % (0-9) Eosinophils (%) (Auto) 0 % (0-3) Basophils (%) (Auto) 0 % (0-3) Neutrophils # (Auto) 12.4 x10^3/uL (1.8-7.7) Lymphocytes # (Auto) 1.6 x10^3/uL (1.0-4.8) Monocytes # (Auto) 0.6 x10^3/uL (0.0-1.1) Eosinophils # (Auto) 0.0 x10^3/uL (0.0-0.7) Basophils # (Auto) 0.1 x10^3/uL (0.0-0.2) Lactic Acid Level 4.9 mmol/L (0.4-2.0) 5.3 mmol/L (0.4-2.0) Urine Collection Type Unknown Urine Color Yellow Urine Clarity Clear Urine pH 5.5 (<5.0-8.0) Urine Specific [place] >=1.030 (1.000-1.030) Urine Protein 30 mg/dL (NEG-TRACE) Urine Glucose (UA) >=1000 mg/dL (NEG) Urine Ketones (Stick) 15 mg/dL (NEG) Urine Blood Negative (NEG) Urine Nitrite Negative (NEG) Urine Bilirubin Negative (NEG) Urine Urobilinogen Dipstick 0.2 mg/dL (0.2 mg/dL) Urine Leukocyte Esterase Negative (NEG) Urine RBC 0 /HPF (0-2) Urine WBC Occ /HPF (0-4) Urine Squamous Epithelial Cells Mod /LPF Urine Bacteria Moderate /HPF (0-FEW) Urine Mucus Mod /LPF Urine Yeast Present /HPF Test 02/17/20 18:50 02/17/20 20:19 02/17/20 22:30 02/18/20 05:10 Troponin I Quantitative < 0.017 ng/mL (0.000-0.055) < 0.017 ng/mL (0.000-0.055) Glucose (Fingerstick) 171 mg/dL (70-99) Lactic Acid Level 1.3 mmol/L (0.4-2.0) 1.3 mmol/L (0.4-2.0) White Blood Count 8.1 x10^3/uL (4.0-11.0) Red Blood Count 4.72 x10^6/uL (3.50-5.40) Hemoglobin 13.9 g/dL (12.0-15.5) Hematocrit 41.1 % (36.0-47.0) Mean Corpuscular Volume 87 fL (79-100) Mean Corpuscular Hemoglobin 29 pg (25-35) Mean Corpuscular Hemoglobin Concent 34 g/dL (31-37) Red Cell Distribution Width 14.1 % (11.5-14.5) Platelet Count 149 x10^3/uL (140-400) Neutrophils (%) (Auto) 76 % (31-73) Lymphocytes (%) (Auto) 16 % (24-48) Monocytes (%) (Auto) 7 % (0-9) Eosinophils (%) (Auto) 1 % (0-3) Basophils (%) (Auto) 1 % (0-3) Neutrophils # (Auto) 6.2 x10^3/uL (1.8-7.7) Lymphocytes # (Auto) 1.3 x10^3/uL (1.0-4.8) Monocytes # (Auto) 0.6 x10^3/uL (0.0-1.1) Eosinophils # (Auto) 0.0 x10^3/uL (0.0-0.7) Basophils # (Auto) 0.1 x10^3/uL (0.0-0.2) Sodium Level 143 mmol/L (136-145) Potassium Level 4.8 mmol/L (3.5-5.1) Chloride Level 109 mmol/L (98-107) Carbon Dioxide Level 25 mmol/L (21-32) Anion Gap 9 (6-14) Blood Urea Nitrogen 12 mg/dL (7-20) Creatinine 0.9 mg/dL (0.6-1.0) Estimated GFR (Cockcroft-Gault) 64.3 BUN/Creatinine Ratio 13 (6-20) Glucose Level 126 mg/dL (70-99) Calcium Level 8.0 mg/dL (8.5-10.1) Total Bilirubin 0.7 mg/dL (0.2-1.0) Aspartate Amino Transf (AST/SGOT) 21 U/L (15-37) Alanine Aminotransferase (ALT/SGPT) 30 U/L (14-59) Alkaline Phosphatase 54 U/L (46-116) Total Protein 6.6 g/dL (6.4-8.2) Albumin 3.1 g/dL (3.4-5.0) Albumin/Globulin Ratio 0.9 (1.0-1.7) Laboratory Tests Test 02/17/20 13:30 02/17/20 13:50 02/17/20 15:25 02/17/20 17:40 Sodium Level 136 mmol/L (136-145) Potassium Level 4.8 mmol/L (3.5-5.1) Chloride Level 97 mmol/L (98-107) Carbon Dioxide Level 23 mmol/L (21-32) Anion Gap 16 (6-14) Blood Urea Nitrogen 12 mg/dL (7-20) Creatinine 1.2 mg/dL (0.6-1.0) Estimated GFR (Cockcroft-Gault) 46.1 BUN/Creatinine Ratio 10 (6-20) Glucose Level 268 mg/dL (70-99) Calcium Level 10.2 mg/dL (8.5-10.1) Magnesium Level 2.7 mg/dL (1.8-2.4) Total Bilirubin 1.0 mg/dL (0.2-1.0) Aspartate Amino Transf (AST/SGOT) 30 U/L (15-37) Alanine Aminotransferase (ALT/SGPT) 37 U/L (14-59) Alkaline Phosphatase 86 U/L (46-116) Creatine Kinase 115 U/L (26-192) Creatine Kinase MB (Mass) 5.2 ng/mL (0.0-3.6) Creatine Kinase MB Relative Index 4.5 % (0-4) Troponin I Quantitative < 0.017 ng/mL (0.000-0.055) Total Protein 9.2 g/dL (6.4-8.2) Albumin 4.6 g/dL (3.4-5.0) Albumin/Globulin Ratio 1.0 (1.0-1.7) Acetone Level Neg (NEG) White Blood Count 14.7 x10^3/uL (4.0-11.0) Red Blood Count 6.00 x10^6/uL (3.50-5.40) Hemoglobin 17.8 g/dL (12.0-15.5) Hematocrit 52.7 % (36.0-47.0) Mean Corpuscular Volume 88 fL (79-100) Mean Corpuscular Hemoglobin 30 pg (25-35) Mean Corpuscular Hemoglobin Concent 34 g/dL (31-37) Red Cell Distribution Width 14.1 % (11.5-14.5) Platelet Count 187 x10^3/uL (140-400) Neutrophils (%) (Auto) 85 % (31-73) Lymphocytes (%) (Auto) 11 % (24-48) Monocytes (%) (Auto) 4 % (0-9) Eosinophils (%) (Auto) 0 % (0-3) Basophils (%) (Auto) 0 % (0-3) Neutrophils # (Auto) 12.4 x10^3/uL (1.8-7.7) Lymphocytes # (Auto) 1.6 x10^3/uL (1.0-4.8) Monocytes # (Auto) 0.6 x10^3/uL (0.0-1.1) Eosinophils # (Auto) 0.0 x10^3/uL (0.0-0.7) Basophils # (Auto) 0.1 x10^3/uL (0.0-0.2) Lactic Acid Level 4.9 mmol/L (0.4-2.0) 5.3 mmol/L (0.4-2.0) Urine Collection Type Unknown Urine Color Yellow Urine Clarity Clear Urine pH 5.5 (<5.0-8.0) Urine Specific [place] >=1.030 (1.000-1.030) Urine Protein 30 mg/dL (NEG-TRACE) Urine Glucose (UA) >=1000 mg/dL (NEG) Urine Ketones (Stick) 15 mg/dL (NEG) Urine Blood Negative (NEG) Urine Nitrite Negative (NEG) Urine Bilirubin Negative (NEG) Urine Urobilinogen Dipstick 0.2 mg/dL (0.2 mg/dL) Urine Leukocyte Esterase Negative (NEG) Urine RBC 0 /HPF (0-2) Urine WBC Occ /HPF (0-4) Urine Squamous Epithelial Cells Mod /LPF Urine Bacteria Moderate /HPF (0-FEW) Urine Mucus Mod /LPF Urine Yeast Present /HPF Test 02/17/20 18:50 02/17/20 20:19 02/17/20 22:30 02/18/20 05:10 Troponin I Quantitative < 0.017 ng/mL (0.000-0.055) < 0.017 ng/mL (0.000-0.055) Glucose (Fingerstick) 171 mg/dL (70-99) Lactic Acid Level 1.3 mmol/L (0.4-2.0) 1.3 mmol/L (0.4-2.0) White Blood Count 8.1 x10^3/uL (4.0-11.0) Red Blood Count 4.72 x10^6/uL (3.50-5.40) Hemoglobin 13.9 g/dL (12.0-15.5) Hematocrit 41.1 % (36.0-47.0) Mean Corpuscular Volume 87 fL (79-100) Mean Corpuscular Hemoglobin 29 pg (25-35) Mean Corpuscular Hemoglobin Concent 34 g/dL (31-37) Red Cell Distribution Width 14.1 % (11.5-14.5) Platelet Count 149 x10^3/uL (140-400) Neutrophils (%) (Auto) 76 % (31-73) Lymphocytes (%) (Auto) 16 % (24-48) Monocytes (%) (Auto) 7 % (0-9) Eosinophils (%) (Auto) 1 % (0-3) Basophils (%) (Auto) 1 % (0-3) Neutrophils # (Auto) 6.2 x10^3/uL (1.8-7.7) Lymphocytes # (Auto) 1.3 x10^3/uL (1.0-4.8) Monocytes # (Auto) 0.6 x10^3/uL (0.0-1.1) Eosinophils # (Auto) 0.0 x10^3/uL (0.0-0.7) Basophils # (Auto) 0.1 x10^3/uL (0.0-0.2) Sodium Level 143 mmol/L (136-145) Potassium Level 4.8 mmol/L (3.5-5.1) Chloride Level 109 mmol/L (98-107) Carbon Dioxide Level 25 mmol/L (21-32) Anion Gap 9 (6-14) Blood Urea Nitrogen 12 mg/dL (7-20) Creatinine 0.9 mg/dL (0.6-1.0) Estimated GFR (Cockcroft-Gault) 64.3 BUN/Creatinine Ratio 13 (6-20) Glucose Level 126 mg/dL (70-99) Calcium Level 8.0 mg/dL (8.5-10.1) Total Bilirubin 0.7 mg/dL (0.2-1.0) Aspartate Amino Transf (AST/SGOT) 21 U/L (15-37) Alanine Aminotransferase (ALT/SGPT) 30 U/L (14-59) Alkaline Phosphatase 54 U/L (46-116) Total Protein 6.6 g/dL (6.4-8.2) Albumin 3.1 g/dL (3.4-5.0) Albumin/Globulin Ratio 0.9 (1.0-1.7) Images Images CT Head without IV contrast: BRAIN PARENCHYMA: No evidence of acute intraparenchymal hemorrhage or infarct. No abnormal parenchymal density or mass. VENTRICLES & EXTRA-AXIAL SPACES: Ventricles are within normal limits. Basilar cisterns are patent. No pathologic extra-axial fluid collection or mass. ORBITS: Orbital contents are unremarkable. SINUSES: Visualized paranasal sinuses and mastoid air cells are clear. OSSEOUS & SOFT TISSUES: Calvarium and skull base are intact. IMPRESSION: No acute intracranial pathology. CT Cervical Spine without IV contrast: CRANIOCERVICAL JUNCTION: Unremarkable. ALIGNMENT: Mild reversal of cervical lordosis in the setting of multilevel cervical degenerative spondylosis. OSSEOUS: No evidence of fracture or bone destruction. There is evidence of mild ossification of posterior longitudinal ligament at C6. DISC SPACES: Multilevel disc degenerative changes are present FACET JOINTS: Unremarkable. SPINAL CANAL: Unremarkable. NEUROFORAMINA: Unremarkable. SOFT TISSUES: Unremarkable. Incidentally, the spinous process of C7 is partially excluded. IMPRESSION: Multilevel cervical degenerative spondylosis with no acute traumatic finding shown on CT. CXR: Single upright portable exam of the chest was performed. Heart size and medi astinal contours are within normal limits given technique. The lungs are clear without evidence of focal consolidation. Vascular interstitium is within normal limits. Impression:: Negative portable chest. VTE Prophylaxis Ordered VTE Prophylaxis Devices: No VTE Pharmacological Prophylaxi: Yes Assessment/Plan Assessment/Plan A/P: Intractable nausea and vomiting read as SBO. Likely was toxigenic food poisoning from reheated pizza. Seems to be passing flatus now 24 hours later. General surgery consulted. Will try clears. Advance liquid diet to full diet as tolerated. IV Zofran has been helping. DM2 -last A1c is 8, she sees an outpatient clinical nursing instructor.. Will put on sliding scale and basal insulin. 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 Stable. Paroxsymal afib -sees Dr. Mckeon outpatient. Sinus Obesity s/p gastric sleeve - has lost weight, may be contributing to the ap pearance of SBO. I will defer to surgery but advancing diet seems appropriate liquids first. Leukocytosis, likely secondary to gastroenteritis and volume depletion. Lactic acidosislikely secondary to above has resolved. AKIlikely vasomotor nephropathy due to dehydration from gastroenteritis. Has improved. Hypercalcemiaresolved was likely due to volume depletion Protein calorie malnutritionlikely secondary to status post gastric sleeve. FEN - NPO, ADAT PPX - lovenox FULL CODE Dispo - Admitted inpatient, will try to advance diet, if SBO persists will cont care Justicifation of Admission Dx: Justifications for Admission: Justification of Admission Dx: Yes CORINA ESPARZA MD Feb 18, 2020 08:48
--- NOTE | 2020-02-18 11:40 | PDOC ---
SURGICAL PROGRESS NOTE Subjective no pain no nausea + flatus started clears Vital Signs Vital Signs Date Time Temp Pulse Resp B/P (MAP) Pulse Ox O2 Delivery O2 Flow Rate FiO2 02/18/20 11:03 79 18 143/69 (93) 100 Room Air 02/18/20 07:34 98.6 98.6 I&O Intake and Output 02/18/20 07:00 Intake Total 1050 ml Output Total 0 ml Balance 1050 ml Intake Oral 50 ml IV Total 1000 ml Output Urine Total 0 ml # Voids 1 General: Alert, Oriented X3, Cooperative Abdomen: Soft, No tenderness Labs Laboratory Tests Test 02/17/20 13:30 02/17/20 13:50 02/17/20 15:25 02/17/20 17:40 Sodium Level 136 mmol/L (136-145) Potassium Level 4.8 mmol/L (3.5-5.1) Chloride Level 97 mmol/L (98-107) Carbon Dioxide Level 23 mmol/L (21-32) Anion Gap 16 (6-14) Blood Urea Nitrogen 12 mg/dL (7-20) Creatinine 1.2 mg/dL (0.6-1.0) Estimated GFR (Cockcroft-Gault) 46.1 BUN/Creatinine Ratio 10 (6-20) Glucose Level 268 mg/dL (70-99) Calcium Level 10.2 mg/dL (8.5-10.1) Magnesium Level 2.7 mg/dL (1.8-2.4) Total Bilirubin 1.0 mg/dL (0.2-1.0) Aspartate Amino Transf (AST/SGOT) 30 U/L (15-37) Alanine Aminotransferase (ALT/SGPT) 37 U/L (14-59) Alkaline Phosphatase 86 U/L (46-116) Creatine Kinase 115 U/L (26-192) Creatine Kinase MB (Mass) 5.2 ng/mL (0.0-3.6) Creatine Kinase MB Relative Index 4.5 % (0-4) Troponin I Quantitative < 0.017 ng/mL (0.000-0.055) Total Protein 9.2 g/dL (6.4-8.2) Albumin 4.6 g/dL (3.4-5.0) Albumin/Globulin Ratio 1.0 (1.0-1.7) Acetone Level Neg (NEG) White Blood Count 14.7 x10^3/uL (4.0-11.0) Red Blood Count 6.00 x10^6/uL (3.50-5.40) Hemoglobin 17.8 g/dL (12.0-15.5) Hematocrit 52.7 % (36.0-47.0) Mean Corpuscular Volume 88 fL (79-100) Mean Corpuscular Hemoglobin 30 pg (25-35) Mean Corpuscular Hemoglobin Concent 34 g/dL (31-37) Red Cell Distribution Width 14.1 % (11.5-14.5) Platelet Count 187 x10^3/uL (140-400) Neutrophils (%) (Auto) 85 % (31-73) Lymphocytes (%) (Auto) 11 % (24-48) Monocytes (%) (Auto) 4 % (0-9) Eosinophils (%) (Auto) 0 % (0-3) Basophils (%) (Auto) 0 % (0-3) Neutrophils # (Auto) 12.4 x10^3/uL (1.8-7.7) Lymphocytes # (Auto) 1.6 x10^3/uL (1.0-4.8) Monocytes # (Auto) 0.6 x10^3/uL (0.0-1.1) Eosinophils # (Auto) 0.0 x10^3/uL (0.0-0.7) Basophils # (Auto) 0.1 x10^3/uL (0.0-0.2) Lactic Acid Level 4.9 mmol/L (0.4-2.0) 5.3 mmol/L (0.4-2.0) Urine Collection Type Unknown Urine Color Yellow Urine Clarity Clear Urine pH 5.5 (<5.0-8.0) Urine Specific [place] >=1.030 (1.000-1.030) Urine Protein 30 mg/dL (NEG-TRACE) Urine Glucose (UA) >=1000 mg/dL (NEG) Urine Ketones (Stick) 15 mg/dL (NEG) Urine Blood Negative (NEG) Urine Nitrite Negative (NEG) Urine Bilirubin Negative (NEG) Urine Urobilinogen Dipstick 0.2 mg/dL (0.2 mg/dL) Urine Leukocyte Esterase Negative (NEG) Urine RBC 0 /HPF (0-2) Urine WBC Occ /HPF (0-4) Urine Squamous Epithelial Cells Mod /LPF Urine Bacteria Moderate /HPF (0-FEW) Urine Mucus Mod /LPF Urine Yeast Present /HPF Test 02/17/20 18:50 02/17/20 20:19 02/17/20 22:30 02/18/20 05:10 Troponin I Quantitative < 0.017 ng/mL (0.000-0.055) < 0.017 ng/mL (0.000-0.055) Glucose (Fingerstick) 171 mg/dL (70-99) Lactic Acid Level 1.3 mmol/L (0.4-2.0) 1.3 mmol/L (0.4-2.0) White Blood Count 8.1 x10^3/uL (4.0-11.0) Red Blood Count 4.72 x10^6/uL (3.50-5.40) Hemoglobin 13.9 g/dL (12.0-15.5) Hematocrit 41.1 % (36.0-47.0) Mean Corpuscular Volume 87 fL (79-100) Mean Corpuscular Hemoglobin 29 pg (25-35) Mean Corpuscular Hemoglobin Concent 34 g/dL (31-37) Red Cell Distribution Width 14.1 % (11.5-14.5) Platelet Count 149 x10^3/uL (140-400) Neutrophils (%) (Auto) 76 % (31-73) Lymphocytes (%) (Auto) 16 % (24-48) Monocytes (%) (Auto) 7 % (0-9) Eosinophils (%) (Auto) 1 % (0-3) Basophils (%) (Auto) 1 % (0-3) Neutrophils # (Auto) 6.2 x10^3/uL (1.8-7.7) Lymphocytes # (Auto) 1.3 x10^3/uL (1.0-4.8) Monocytes # (Auto) 0.6 x10^3/uL (0.0-1.1) Eosinophils # (Auto) 0.0 x10^3/uL (0.0-0.7) Basophils # (Auto) 0.1 x10^3/uL (0.0-0.2) Sodium Level 143 mmol/L (136-145) Potassium Level 4.8 mmol/L (3.5-5.1) Chloride Level 109 mmol/L (98-107) Carbon Dioxide Level 25 mmol/L (21-32) Anion Gap 9 (6-14) Blood Urea Nitrogen 12 mg/dL (7-20) Creatinine 0.9 mg/dL (0.6-1.0) Estimated GFR (Cockcroft-Gault) 64.3 BUN/Creatinine Ratio 13 (6-20) Glucose Level 126 mg/dL (70-99) Calcium Level 8.0 mg/dL (8.5-10.1) Total Bilirubin 0.7 mg/dL (0.2-1.0) Aspartate Amino Transf (AST/SGOT) 21 U/L (15-37) Alanine Aminotransferase (ALT/SGPT) 30 U/L (14-59) Alkaline Phosphatase 54 U/L (46-116) Total Protein 6.6 g/dL (6.4-8.2) Albumin 3.1 g/dL (3.4-5.0) Albumin/Globulin Ratio 0.9 (1.0-1.7) Laboratory Tests Test 02/17/20 13:30 02/17/20 13:50 02/17/20 15:25 02/17/20 17:40 Sodium Level 136 mmol/L (136-145) Potassium Level 4.8 mmol/L (3.5-5.1) Chloride Level 97 mmol/L (98-107) Carbon Dioxide Level 23 mmol/L (21-32) Anion Gap 16 (6-14) Blood Urea Nitrogen 12 mg/dL (7-20) Creatinine 1.2 mg/dL (0.6-1.0) Estimated GFR (Cockcroft-Gault) 46.1 BUN/Creatinine Ratio 10 (6-20) Glucose Level 268 mg/dL (70-99) Calcium Level 10.2 mg/dL (8.5-10.1) Magnesium Level 2.7 mg/dL (1.8-2.4) Total Bilirubin 1.0 mg/dL (0.2-1.0) Aspartate Amino Transf (AST/SGOT) 30 U/L (15-37) Alanine Aminotransferase (ALT/SGPT) 37 U/L (14-59) Alkaline Phosphatase 86 U/L (46-116) Creatine Kinase 115 U/L (26-192) Creatine Kinase MB (Mass) 5.2 ng/mL (0.0-3.6) Creatine Kinase MB Relative Index 4.5 % (0-4) Troponin I Quantitative < 0.017 ng/mL (0.000-0.055) Total Protein 9.2 g/dL (6.4-8.2) Albumin 4.6 g/dL (3.4-5.0) Albumin/Globulin Ratio 1.0 (1.0-1.7) Acetone Level Neg (NEG) White Blood Count 14.7 x10^3/uL (4.0-11.0) Red Blood Count 6.00 x10^6/uL (3.50-5.40) Hemoglobin 17.8 g/dL (12.0-15.5) Hematocrit 52.7 % (36.0-47.0) Mean Corpuscular Volume 88 fL (79-100) Mean Corpuscular Hemoglobin 30 pg (25-35) Mean Corpuscular Hemoglobin Concent 34 g/dL (31-37) Red Cell Distribution Width 14.1 % (11.5-14.5) Platelet Count 187 x10^3/uL (140-400) Neutrophils (%) (Auto) 85 % (31-73) Lymphocytes (%) (Auto) 11 % (24-48) Monocytes (%) (Auto) 4 % (0-9) Eosinophils (%) (Auto) 0 % (0-3) Basophils (%) (Auto) 0 % (0-3) Neutrophils # (Auto) 12.4 x10^3/uL (1.8-7.7) Lymphocytes # (Auto) 1.6 x10^3/uL (1.0-4.8) Monocytes # (Auto) 0.6 x10^3/uL (0.0-1.1) Eosinophils # (Auto) 0.0 x10^3/uL (0.0-0.7) Basophils # (Auto) 0.1 x10^3/uL (0.0-0.2) Lactic Acid Level 4.9 mmol/L (0.4-2.0) 5.3 mmol/L (0.4-2.0) Urine Collection Type Unknown Urine Color Yellow Urine Clarity Clear Urine pH 5.5 (<5.0-8.0) Urine Specific [place] >=1.030 (1.000-1.030) Urine Protein 30 mg/dL (NEG-TRACE) Urine Glucose (UA) >=1000 mg/dL (NEG) Urine Ketones (Stick) 15 mg/dL (NEG) Urine Blood Negative (NEG) Urine Nitrite Negative (NEG) Urine Bilirubin Negative (NEG) Urine Urobilinogen Dipstick 0.2 mg/dL (0.2 mg/dL) Urine Leukocyte Esterase Negative (NEG) Urine RBC 0 /HPF (0-2) Urine WBC Occ /HPF (0-4) Urine Squamous Epithelial Cells Mod /LPF Urine Bacteria Moderate /HPF (0-FEW) Urine Mucus Mod /LPF Urine Yeast Present /HPF Test 02/17/20 18:50 02/17/20 20:19 02/17/20 22:30 02/18/20 05:10 Troponin I Quantitative < 0.017 ng/mL (0.000-0.055) < 0.017 ng/mL (0.000-0.055) Glucose (Fingerstick) 171 mg/dL (70-99) Lactic Acid Level 1.3 mmol/L (0.4-2.0) 1.3 mmol/L (0.4-2.0) White Blood Count 8.1 x10^3/uL (4.0-11.0) Red Blood Count 4.72 x10^6/uL (3.50-5.40) Hemoglobin 13.9 g/dL (12.0-15.5) Hematocrit 41.1 % (36.0-47.0) Mean Corpuscular Volume 87 fL (79-100) Mean Corpuscular Hemoglobin 29 pg (25-35) Mean Corpuscular Hemoglobin Concent 34 g/dL (31-37) Red Cell Distribution Width 14.1 % (11.5-14.5) Platelet Count 149 x10^3/uL (140-400) Neutrophils (%) (Auto) 76 % (31-73) Lymphocytes (%) (Auto) 16 % (24-48) Monocytes (%) (Auto) 7 % (0-9) Eosinophils (%) (Auto) 1 % (0-3) Basophils (%) (Auto) 1 % (0-3) Neutrophils # (Auto) 6.2 x10^3/uL (1.8-7.7) Lymphocytes # (Auto) 1.3 x10^3/uL (1.0-4.8) Monocytes # (Auto) 0.6 x10^3/uL (0.0-1.1) Eosinophils # (Auto) 0.0 x10^3/uL (0.0-0.7) Basophils # (Auto) 0.1 x10^3/uL (0.0-0.2) Sodium Level 143 mmol/L (136-145) Potassium Level 4.8 mmol/L (3.5-5.1) Chloride Level 109 mmol/L (98-107) Carbon Dioxide Level 25 mmol/L (21-32) Anion Gap 9 (6-14) Blood Urea Nitrogen 12 mg/dL (7-20) Creatinine 0.9 mg/dL (0.6-1.0) Estimated GFR (Cockcroft-Gault) 64.3 BUN/Creatinine Ratio 13 (6-20) Glucose Level 126 mg/dL (70-99) Calcium Level 8.0 mg/dL (8.5-10.1) Total Bilirubin 0.7 mg/dL (0.2-1.0) Aspartate Amino Transf (AST/SGOT) 21 U/L (15-37) Alanine Aminotransferase (ALT/SGPT) 30 U/L (14-59) Alkaline Phosphatase 54 U/L (46-116) Total Protein 6.6 g/dL (6.4-8.2) Albumin 3.1 g/dL (3.4-5.0) Albumin/Globulin Ratio 0.9 (1.0-1.7) Problem List Problems Medical Problems: (1) Hypothermia Status: Acute (2) Small bowel obstruction Status: Acute (3) Syncope Status: Acute Assessment/Plan improved, diet as tolerated Justicifation of Admission Dx: Justifications for Admission: Justification of Admission Dx: Yes GEN LUTZ [employer] CONSULTANT Feb 18, 2020 11:40
--- NOTE | 2020-02-18 13:56 | NUR ---
SS following for discharge planning. SS reviewed pt chart and discussed with pt RN. Pt is from home with spouse and is currently on room air. Pt is COVID19 pending. SS will continue to follow for discharge planning.
--- NOTE | 2020-02-18 14:44 | PDOC3 ---
Discharge Summary Visit Information Date of Admission: Feb 17, 2020 Date of Discharge: Feb 18, 2020 Admitting Diagnosis: Syncope Final Diagnosis Problems Medical Problems: (1) Hypothermia Status: Acute (2) Small bowel obstruction Status: Acute (3) Suspected 2019 novel coronavirus infection Status: Acute (4) Syncope Status: Acute Brief Hospital Course Allergies Allergies Coded Allergies Type Severity Reaction Last Updated Verified No Known Drug Allergies 02/17/20 No Vital Signs Vital Signs Date Time Temp Pulse Resp B/P (MAP) Pulse Ox O2 Delivery O2 Flow Rate FiO2 02/18/20 14:34 82 16 115/69 (84) 96 Room Air 02/18/20 12:00 98.5 98.5 Lab Results Laboratory Tests Test 02/17/20 13:30 02/17/20 13:50 02/17/20 15:25 02/17/20 17:40 Sodium Level 136 mmol/L (136-145) Potassium Level 4.8 mmol/L (3.5-5.1) Chloride Level 97 mmol/L (98-107) Carbon Dioxide Level 23 mmol/L (21-32) Anion Gap 16 (6-14) Blood Urea Nitrogen 12 mg/dL (7-20) Creatinine 1.2 mg/dL (0.6-1.0) Estimated GFR (Cockcroft-Gault) 46.1 BUN/Creatinine Ratio 10 (6-20) Glucose Level 268 mg/dL (70-99) Calcium Level 10.2 mg/dL (8.5-10.1) Magnesium Level 2.7 mg/dL (1.8-2.4) Total Bilirubin 1.0 mg/dL (0.2-1.0) Aspartate Amino Transf (AST/SGOT) 30 U/L (15-37) Alanine Aminotransferase (ALT/SGPT) 37 U/L (14-59) Alkaline Phosphatase 86 U/L (46-116) Creatine Kinase 115 U/L (26-192) Creatine Kinase MB (Mass) 5.2 ng/mL (0.0-3.6) Creatine Kinase MB Relative Index 4.5 % (0-4) Troponin I Quantitative < 0.017 ng/mL (0.000-0.055) Total Protein 9.2 g/dL (6.4-8.2) Albumin 4.6 g/dL (3.4-5.0) Albumin/Globulin Ratio 1.0 (1.0-1.7) Acetone Level Neg (NEG) White Blood Count 14.7 x10^3/uL (4.0-11.0) Red Blood Count 6.00 x10^6/uL (3.50-5.40) Hemoglobin 17.8 g/dL (12.0-15.5) Hematocrit 52.7 % (36.0-47.0) Mean Corpuscular Volume 88 fL (79-100) Mean Corpuscular Hemoglobin 30 pg (25-35) Mean Corpuscular Hemoglobin Concent 34 g/dL (31-37) Red Cell Distribution Width 14.1 % (11.5-14.5) Platelet Count 187 x10^3/uL (140-400) Neutrophils (%) (Auto) 85 % (31-73) Lymphocytes (%) (Auto) 11 % (24-48) Monocytes (%) (Auto) 4 % (0-9) Eosinophils (%) (Auto) 0 % (0-3) Basophils (%) (Auto) 0 % (0-3) Neutrophils # (Auto) 12.4 x10^3/uL (1.8-7.7) Lymphocytes # (Auto) 1.6 x10^3/uL (1.0-4.8) Monocytes # (Auto) 0.6 x10^3/uL (0.0-1.1) Eosinophils # (Auto) 0.0 x10^3/uL (0.0-0.7) Basophils # (Auto) 0.1 x10^3/uL (0.0-0.2) Lactic Acid Level 4.9 mmol/L (0.4-2.0) 5.3 mmol/L (0.4-2.0) Urine Collection Type Unknown Urine Color Yellow Urine Clarity Clear Urine pH 5.5 (<5.0-8.0) Urine Specific [place] >=1.030 (1.000-1.030) Urine Protein 30 mg/dL (NEG-TRACE) Urine Glucose (UA) >=1000 mg/dL (NEG) Urine Ketones (Stick) 15 mg/dL (NEG) Urine Blood Negative (NEG) Urine Nitrite Negative (NEG) Urine Bilirubin Negative (NEG) Urine Urobilinogen Dipstick 0.2 mg/dL (0.2 mg/dL) Urine Leukocyte Esterase Negative (NEG) Urine RBC 0 /HPF (0-2) Urine WBC Occ /HPF (0-4) Urine Squamous Epithelial Cells Mod /LPF Urine Bacteria Moderate /HPF (0-FEW) Urine Mucus Mod /LPF Urine Yeast Present /HPF Test 02/17/20 18:50 02/17/20 20:19 02/17/20 22:30 02/18/20 05:10 Troponin I Quantitative < 0.017 ng/mL (0.000-0.055) < 0.017 ng/mL (0.000-0.055) Glucose (Fingerstick) 171 mg/dL (70-99) Lactic Acid Level 1.3 mmol/L (0.4-2.0) 1.3 mmol/L (0.4-2.0) White Blood Count 8.1 x10^3/uL (4.0-11.0) Red Blood Count 4.72 x10^6/uL (3.50-5.40) Hemoglobin 13.9 g/dL (12.0-15.5) Hematocrit 41.1 % (36.0-47.0) Mean Corpuscular Volume 87 fL (79-100) Mean Corpuscular Hemoglobin 29 pg (25-35) Mean Corpuscular Hemoglobin Concent 34 g/dL (31-37) Red Cell Distribution Width 14.1 % (11.5-14.5) Platelet Count 149 x10^3/uL (140-400) Neutrophils (%) (Auto) 76 % (31-73) Lymphocytes (%) (Auto) 16 % (24-48) Monocytes (%) (Auto) 7 % (0-9) Eosinophils (%) (Auto) 1 % (0-3) Basophils (%) (Auto) 1 % (0-3) Neutrophils # (Auto) 6.2 x10^3/uL (1.8-7.7) Lymphocytes # (Auto) 1.3 x10^3/uL (1.0-4.8) Monocytes # (Auto) 0.6 x10^3/uL (0.0-1.1) Eosinophils # (Auto) 0.0 x10^3/uL (0.0-0.7) Basophils # (Auto) 0.1 x10^3/uL (0.0-0.2) Sodium Level 143 mmol/L (136-145) Potassium Level 4.8 mmol/L (3.5-5.1) Chloride Level 109 mmol/L (98-107) Carbon Dioxide Level 25 mmol/L (21-32) Anion Gap 9 (6-14) Blood Urea Nitrogen 12 mg/dL (7-20) Creatinine 0.9 mg/dL (0.6-1.0) Estimated GFR (Cockcroft-Gault) 64.3 BUN/Creatinine Ratio 13 (6-20) Glucose Level 126 mg/dL (70-99) Calcium Level 8.0 mg/dL (8.5-10.1) Total Bilirubin 0.7 mg/dL (0.2-1.0) Aspartate Amino Transf (AST/SGOT) 21 U/L (15-37) Alanine Aminotransferase (ALT/SGPT) 30 U/L (14-59) Alkaline Phosphatase 54 U/L (46-116) Total Protein 6.6 g/dL (6.4-8.2) Albumin 3.1 g/dL (3.4-5.0) Albumin/Globulin Ratio 0.9 (1.0-1.7) Test 02/18/20 12:25 Glucose (Fingerstick) 149 mg/dL (70-99) Laboratory Tests Test 02/17/20 15:25 02/17/20 17:40 02/17/20 18:50 02/17/20 20:19 Urine Collection Type Unknown Urine Color Yellow Urine Clarity Clear Urine pH 5.5 (<5.0-8.0) Urine Specific [place] >=1.030 (1.000-1.030) Urine Protein 30 mg/dL (NEG-TRACE) Urine Glucose (UA) >=1000 mg/dL (NEG) Urine Ketones (Stick) 15 mg/dL (NEG) Urine Blood Negative (NEG) Urine Nitrite Negative (NEG) Urine Bilirubin Negative (NEG) Urine Urobilinogen Dipstick 0.2 mg/dL (0.2 mg/dL) Urine Leukocyte Esterase Negative (NEG) Urine RBC 0 /HPF (0-2) Urine WBC Occ /HPF (0-4) Urine Squamous Epithelial Cells Mod /LPF Urine Bacteria Moderate /HPF (0-FEW) Urine Mucus Mod /LPF Urine Yeast Present /HPF Lactic Acid Level 5.3 mmol/L (0.4-2.0) Troponin I Quantitative < 0.017 ng/mL (0.000-0.055) Glucose (Fingerstick) 171 mg/dL (70-99) Test 02/17/20 22:30 02/18/20 05:10 02/18/20 12:25 Lactic Acid Level 1.3 mmol/L (0.4-2.0) 1.3 mmol/L (0.4-2.0) Troponin I Quantitative < 0.017 ng/mL (0.000-0.055) White Blood Count 8.1 x10^3/uL (4.0-11.0) Red Blood Count 4.72 x10^6/uL (3.50-5.40) Hemoglobin 13.9 g/dL (12.0-15.5) Hematocrit 41.1 % (36.0-47.0) Mean Corpuscular Volume 87 fL (79-100) Mean Corpuscular Hemoglobin 29 pg (25-35) Mean Corpuscular Hemoglobin Concent 34 g/dL (31-37) Red Cell Distribution Width 14.1 % (11.5-14.5) Platelet Count 149 x10^3/uL (140-400) Neutrophils (%) (Auto) 76 % (31-73) Lymphocytes (%) (Auto) 16 % (24-48) Monocytes (%) (Auto) 7 % (0-9) Eosinophils (%) (Auto) 1 % (0-3) Basophils (%) (Auto) 1 % (0-3) Neutrophils # (Auto) 6.2 x10^3/uL (1.8-7.7) Lymphocytes # (Auto) 1.3 x10^3/uL (1.0-4.8) Monocytes # (Auto) 0.6 x10^3/uL (0.0-1.1) Eosinophils # (Auto) 0.0 x10^3/uL (0.0-0.7) Basophils # (Auto) 0.1 x10^3/uL (0.0-0.2) Sodium Level 143 mmol/L (136-145) Potassium Level 4.8 mmol/L (3.5-5.1) Chloride Level 109 mmol/L (98-107) Carbon Dioxide Level 25 mmol/L (21-32) Anion Gap 9 (6-14) Blood Urea Nitrogen 12 mg/dL (7-20) Creatinine 0.9 mg/dL (0.6-1.0) Estimated GFR (Cockcroft-Gault) 64.3 BUN/Creatinine Ratio 13 (6-20) Glucose Level 126 mg/dL (70-99) Calcium Level 8.0 mg/dL (8.5-10.1) Total Bilirubin 0.7 mg/dL (0.2-1.0) Aspartate Amino Transf (AST/SGOT) 21 U/L (15-37) Alanine Aminotransferase (ALT/SGPT) 30 U/L (14-59) Alkaline Phosphatase 54 U/L (46-116) Total Protein 6.6 g/dL (6.4-8.2) Albumin 3.1 g/dL (3.4-5.0) Albumin/Globulin Ratio 0.9 (1.0-1.7) Glucose (Fingerstick) 149 mg/dL (70-99) Brief Hospital Course Ms Valentin is a 59yo F w/ PMHx DM2, hypothyroidism, paroxsymal afib, obesity s/p gastric sleeve who presents to ed via ambulance after a fall [facility]. EMS reports there was a hole in the drywall where pt his her head. unknown LOC. pt reporting fatigue, heartburn and nausea and vomiting x 4 on 02/17/2020. She suddenly started feeling nauseated at 10 AM on 02/17/2020. Last meal was on 02/16/2020 in the afternoon she had reheated pizza and ice cream, noted the pizza tasted "off". She ate home-cooked eggs and hashbrowns for breakfast on 02/16/2020 her also ate this and he has not been feeling any symptoms. CT head negative, CT abdomen pelvis made note of gastric sleeve and possible small bowel obstruction with transition point in the mid abdomen. She has been passing gas no bowel movement however she did have a bowel movement on Tuesday. Noted initially diaphoretic - oral/axillary temp of 90.5, rectal of 96.8. Sinus tachycardia at 107bpm, NO ST elevation, QRS 86ms, QT/QTc 322/435ms WBC 14.7, Hb 17.8, platelets 187, NA 136, K4.8, BUN 12, CR 1.2, lactate 5.3, calcium 10.2 mag 2.7, troponin negative x3, albumin 3.1, glucose 268. Had been seen by surgery when admitted on 02/17/2020 and recommended n.p.o. for the possible SBO. 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 WBC normalized labs all improved on IV fluids. She has no further nausea no further vomiting and is passing flatus. She tolerated regular diet was seen by general surgery. And will self isolate at home until her COVID-19 test returns. Problem: Intractable nausea and vomiting read as SBO. Likely was toxigenic food poisoning from reheated pizza. Seems to be passing flatus now 24 hours later. General surgery consulted. Will try clears. Advance liquid diet to full diet as tolerated. IV Zofran has been helping. 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 Will put on sliding scale and basal insulin. 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 Stable. Paroxsymal afib -sees Dr. Mckeon outpatient. Sinus Obesity s/p gastric sleeve - has lost weight, may be contributing to the appearance of SBO. I will defer to surgery but advancing diet seems appropriate liquids first. Leukocytosis, likely secondary to gastroenteritis and volume depletion. Lactic acidosislikely secondary to above has resolved. AKIlikely vasomotor nephropathy due to dehydration from gastroenteritis. Has improved. Hypercalcemiaresolved was likely due to volume depletion Protein calorie malnutritionlikely secondary to status post gastric sleeve. Greater than 135 minutes spent on same day admit and d/c Discharge Information Condition at Discharge: Improved Follow Up: Weeks (1) Disposition/Orders: D/C to Home No Active Prescriptions or Reported Meds Justicifation of Admission Dx: Justifications for Admission: Justification of Admission Dx: Yes Sepsis: End-Organ Dysfunction CORINA ESPARZA MD Feb 18, 2020 14:44
--- NOTE | 2020-02-18 15:47 | NUR ---
Discharge Note: TOLU ALVAREZ [facility] Discharge instructions and discharge home medications reviewed with Patient and a copy given. All questions have been answered and understanding verbalized. The following instructions and handouts were given: Follow up with PCP as needed. Self quarentined until you have been notified of COVID19 test results. Discontinued lines and drains: 20g L AC removed with tip intact. Patient discharged to home with self care. Spouse drove patient from [facility] facility.
--- NOTE | 2020-02-19 07:55 | EKG ---
[facility] [address] [place] [address] Test Date: 2020-02-17 Test Time: 11:48:36 Pat Name: TOLU ALVAREZ Department: Room: Gender: F Spinning Doffer: : 1960 Requested By: DAYAMI CANSECO Order Number: [id number] Reading MD: Measurements Intervals [place] Rate: 107 P: 38 MA: 152 QRS: 18 QRSD: 86 T: 45 QT: 322 QTc: 435 Interpretive Statements SINUS TACHYCARDIA OTHERWISE NORMAL ECG RI6.02 No previous ECG available for comparison
== END 2020-02-18 15:49 | disposition home or self-care (01) | DRG 371 ==
LOC: ER 11:34 → 1 WEST ICU 15:25
PROVIDERS: ADMIT Internal Medicine; ATTEND Internal Medicine
DX: A05.8 Other specified bacterial foodborne intoxications (principal); N17.0 Acute kidney failure with tubular necrosis; K56.609 Unspecified intestinal obstruction, unspecified as to partial versus complete obstruction; E87.2 Acidosis; E46 Unspecified protein-calorie malnutrition; K52.9 Noninfective gastroenteritis and colitis, unspecified; T68.XXXA Hypothermia, initial encounter; E86.0 Dehydration; Z20.828 Contact with and (suspected) exposure to other viral communicable diseases; Z79.899 Other long term (current) drug therapy; E11.9 Type 2 diabetes mellitus without complications; E03.9 Hypothyroidism, unspecified; I48.91 Unspecified atrial fibrillation; Z79.01 Long term (current) use of anticoagulants; Z90.49 Acquired absence of other specified parts of digestive tract; D72.829 Elevated white blood cell count, unspecified; E87.5 Hyperkalemia
CPT/HCPCS: 36415; 70450; 71045; 71260; 72125; 74177; 80053; 81001; 82010; 82553; 82962; 83605; 83735; 84484; 85025; 87040; 87086; 93005; J1200; J1815; J2405; J2543; J2765; J3490; J7030; G0378; U0003-CS

== ENCOUNTER → 2021-04-14 | Outpatient (CLI) | payer BC ==
[2020-02-18 14:34] VITALS: BP 115/69
--- NOTE | 2021-04-14 14:31 | CARD ---
MR#: [id number] Date of Study: 04/14/2021 Ordering Physician: PILO SANCHES, Referring Physician: PILO SANCHES, Tech: APPROVED REPORT EXAM Loop Recorder Cira is a very pleasant 60-year-old woman who comes into the office today for a planned loop record er implantation. Indication: Arrhythmia, atrial fibrillation Procedure details: The left chest was prepped and draped in usual sterile fashion. 20 mL of 1% local lidocaine anesthes ia was administered to the left parasternal space. A 0.5 inch incision was made with a scalpel. Nex t a [employer] LINQ implantable loop recorder with serial number [id number]. The incision was then c losed with Steri-Strips. No acute complications noted. At case completion the amplitude was 0.3 mV. INDICATIONS Arrhythmia. Atrial fibrillation CONCLUSION 1. Successful plantation of a [employer] implantable loop recorder for history of arrhythmia/atrial f ibrillation Signed by : Pilo Sanches, Electronically Approved : 04/14/2021 14:30:46
== END | disposition home or self-care (01) ==
LOC: LINQ 11:30
PROVIDERS: ATTEND Internal Medicine Cardiovascular Disease
DX: I48.91 Unspecified atrial fibrillation (principal); I49.9 Cardiac arrhythmia, unspecified; E03.9 Hypothyroidism, unspecified; E11.9 Type 2 diabetes mellitus without complications; F32.9 Major depressive disorder, single episode, unspecified; Z85.828 Personal history of other malignant neoplasm of skin; Z72.89 Other problems related to lifestyle; Z79.899 Other long term (current) drug therapy; Z98.890 Other specified postprocedural states
CPT/HCPCS: 33285; C1764

== ENCOUNTER 2021-06-12 16:51 | Observation (INO) | payer BC ==
[~2021-06-12] VITALS: Ht 162.6 cm; Wt 78.6 kg
[2021-06-12] MEDS ORDERED: IV NORMAL SALINE 1000ML BAG 1,000 ML IV SCH (17:45)
[2021-06-12 17:53] LABS: BASO # 0.1 x10^3/uL (0.0-0.2); BASO % 1 % (0-3); EOS # 0.1 x10^3/uL (0.0-0.7); EOS % 1 % (0-3); HEMATOCRIT 48.1 % (36.0-47.0); HEMOGLOBIN 16.2 g/dL (12.0-15.5); LYMPH # 1.6 x10^3/uL (1.0-4.8); LYMPH % 11 % (24-48); MEAN CORPUSCULAR HEMOGLOBIN 31 pg (25-35); MEAN CORPUSCULAR HGB CONC 34 g/dL (31-37); MEAN CORPUSCULAR VOLUME 91 fL (79-100); MONO # 0.8 x10^3/uL (0.0-1.1); MONO % 5 % (0-9); NEUT # 12.1 x10^3/uL (1.8-7.7); NEUT % 82 % (31-73); PLATELET COUNT 206 x10^3/uL (140-400); RED BLOOD COUNT 5.28 x10^6/uL (3.50-5.40); RED CELL DISTRIBUTION WIDTH 13.5 % (11.5-14.5); WHITE BLOOD COUNT 14.7 x10^3/uL (4.0-11.0)
--- NOTE | 2021-06-12 18:08 | EKG ---
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
[2021-06-12 18:13] LABS: GFR 56.7; POTASSIUM 4.1 mmol/L (3.5-5.1)
[2021-06-12 18:20] LABS: ALBUMIN 4.5 g/dL (3.4-5.0); ALBUMIN/GLOBULIN RATIO 1.2 (1.0-1.7); TOTAL BILIRUBIN 0.9 mg/dL (0.2-1.0); TOTAL PROTEIN 8.4 g/dL (6.4-8.2)
[2021-06-12] MEDS ORDERED: CONTRAST GIVEN. MC PRN (18:30)
[2021-06-12] MEDS ORDERED: IOHEXOL 300 MG/ML 100ML VIAL. IV ONE (18:30)
--- NOTE | 2021-06-12 18:50 | PHYS DOC ---
Past Medical History Past Medical History: Cancer, Diabetes-Type II, Hypothyroid Additional Past Medical Histor: PALPITATIONS ([employer]Y [employer]FFEY [employer]) Past Surgical History: Cancer Surgery, Cholecystectomy, Hysterectomy Additional Past Surgical Histo: Cranial carcinoma surgery, Gastric sleeve, ([employer]) Smoking Status: Never Smoker Alcohol Use: Occasionally Drug Use: None (MADDY COFFEY APRN) General Adult EDM: Chief Complaint: SYNCOPE HPI: HPI: Patient is a 60 year old female who presents with today began having left lower quadrant pain and called her doctor and stated for her to come in. She states that she was going to get ready she had a syncopal episode for minute. She states then she called her and her was trying to get her ready to go the doctor and she had her syncopal episode. Patient states that she was feeling dizzy. She states that this time that her lower abdominal pain is only a 2 out of 10 sharp pain. She denies chest pain, shortness of breath, headache, vision change, numbness or tingling, focal weakness, vomiting, diarrhea, nausea. ([employer]) Review of Systems: Review of Systems: Constitutional: Denies fever or chills. [] Eyes: Denies change in visual acuity. [] HENT: Denies nasal congestion or sore throat. [] Respiratory: Denies cough or shortness of breath. [] Cardiovascular: Denies chest pain or edema. [] GI: +abdominal pain, denies nausea, vomiting, bloody stools or diarrhea. [] : Denies dysuria. [] Musculoskeletal: Denies back pain or joint pain. [] Integument: Denies rash. [] Neurologic: Denies headache, focal weakness or sensory changes.+ Dizziness, + syncope [] Endocrine: Denies polyuria or polydipsia. [] Lymphatic: Denies swollen glands. [] Psychiatric: Denies depression or anxiety. [] ([employer]) Heart Score: C/O Chest Pain: No HEART Score for Chest Pain: HEART Score for Chest Pain Response (Comments) Value History Slighlty/Non-Suspicious 0 ECG Normal 0 Age >45 - < 65 1 Risk Factors 1 or 2 Risk Factors 1 Troponin < Normal Limit 0 Total 2 ([employer]) Current Medications: Current Medications Medications (Trade) Dose Ordered Sig/Valerie Start Time Stop Time Status Last Admin Dose Admin Info (CONTRAST GIVEN -- Rx MONITORING) 1 each PRN DAILY PRN 06/12/21 18:30 06/14/21 18:29 Iohexol (Omnipaque 300 Mg/ml) 60 ml 1X ONCE 06/12/21 18:30 06/12/21 18:31 DC Sodium Chloride 1,000 ml @ 1,000 mls/hr Q1H 06/12/21 17:45 06/12/21 18:44 06/12/21 18:37 1,000 MLS/HR ([employer]) Allergies: Allergies: Allergies Coded Allergies Type Severity Reaction Last Updated Verified No Known Drug Allergies 02/17/20 No (MADDY COFFEY APRN) Physical Exam: PE: Constitutional: Well developed, well nourished, no acute distress, non-toxic appearance. [] HENT: Normocephalic, atraumatic, bilateral external ears normal, oropharynx moist, no oral exudates, nose normal. [] Eyes: PERRLA, EOMI, conjunctiva normal, no discharge. [] Neck: Normal range of motion, no tenderness, supple, no stridor. [] Cardiovascular:Heart rate regular rhythm, no murmur [] Lungs & Thorax: Bilateral breath sounds clear to auscultation [] Abdomen: Bowel sounds normal, soft, left lower tenderness, no masses, no pulsatile masses. [] Skin: Warm, dry, no erythema, no rash. [] Back: No tenderness, no CVA tenderness. [] Extremities: No tenderness, no cyanosis, no clubbing, ROM intact, no edema. [] Neurologic: Alert and oriented X 3, normal motor function, normal sensory function, no focal deficits noted. [] Psychologic: Affect normal, judgement normal, mood normal. [] (MADDY COFFEY APRN) Current Patient Data: Labs: Laboratory Tests Test 06/12/21 17:00 White Blood Count 14.7 x10^3/uL (4.0-11.0) H Red Blood Count 5.28 x10^6/uL (3.50-5.40) Hemoglobin 16.2 g/dL (12.0-15.5) H Hematocrit 48.1 % (36.0-47.0) H Mean Corpuscular Volume 91 fL (79-100) Mean Corpuscular Hemoglobin 31 pg (25-35) Mean Corpuscular Hemoglobin Concent 34 g/dL (31-37) Red Cell Distribution Width 13.5 % (11.5-14.5) Platelet Count 206 x10^3/uL (140-400) Neutrophils (%) (Auto) 82 % (31-73) H Lymphocytes (%) (Auto) 11 % (24-48) L Monocytes (%) (Auto) 5 % (0-9) Eosinophils (%) (Auto) 1 % (0-3) Basophils (%) (Auto) 1 % (0-3) Neutrophils # (Auto) 12.1 x10^3/uL (1.8-7.7) H Lymphocytes # (Auto) 1.6 x10^3/uL (1.0-4.8) Monocytes # (Auto) 0.8 x10^3/uL (0.0-1.1) Eosinophils # (Auto) 0.1 x10^3/uL (0.0-0.7) Basophils # (Auto) 0.1 x10^3/uL (0.0-0.2) Sodium Level 139 mmol/L (136-145) Potassium Level 4.1 mmol/L (3.5-5.1) Chloride Level 99 mmol/L (98-107) Carbon Dioxide Level 27 mmol/L (21-32) Anion Gap 13 (6-14) Blood Urea Nitrogen 22 mg/dL (7-20) H Creatinine 1.0 mg/dL (0.6-1.0) Estimated GFR (Cockcroft-Gault) 56.7 BUN/Creatinine Ratio 22 (6-20) H Glucose Level 198 mg/dL (70-99) H Calcium Level 10.0 mg/dL (8.5-10.1) Total Bilirubin 0.9 mg/dL (0.2-1.0) Aspartate Amino Transferase (AST) 27 U/L (15-37) Alanine Aminotransferase (ALT) 43 U/L (14-59) Alkaline Phosphatase 73 U/L (46-116) Troponin I High Sensitivity < 4 ng/L (4-50) L Total Protein 8.4 g/dL (6.4-8.2) H Albumin 4.5 g/dL (3.4-5.0) Albumin/Globulin Ratio 1.2 (1.0-1.7) Lipase 89 U/L (73-393) Laboratory Tests 06/12/21 17:00 Laboratory Tests 06/12/21 17:00 Vital Signs: Vital Signs Date Time Temp Pulse Resp B/P (MAP) Pulse Ox O2 Delivery O2 Flow Rate FiO2 06/12/21 18:26 77 17 126/68 (87) 98 Room Air 06/12/21 16:51 97.9 97.9 (MADDY COFFEY APRN) EKG: EK and read by Dr. Arreaga as sinus rhythm and no STEMI [address] Canseco as sinus rhythm and no STEMI (MADDY COFFEY APRN) Radiology/Procedures: Radiology/Procedures: [] Impression: [facility] [address] [place], [place] [id number] IMAGING REPORT Signed PATIENT: TOLU ALVAREZ ACCOUNT: [id number] : 1960 LOCATION: ER AGE: 60 SEX: F EXAM STATUS: REG ER ORD. PHYSICIAN: MADDY COFFEY APRN REASON: Left lower pain, OMNI 300, 60 ML IV PROCEDURE: CT ABD PELV W/ IV CONTRST ONLY Exam: CT of abdomen and pelvis with contrast INDICATION: Left lower pain TECHNIQUE: Sequential axial images through the abdomen and pelvis obtained following the administration of 60 mL of Isovue-370 IV contrast. Sagittal and coronal reformatted images were reconstructed from the axial data and reviewed. Exposure: One or more of the following in the visualized dose reduction techniques were utilized for this examination: 1. Automated exposure control 2. Adjustment of the MA and/or KV according to patient size 3. Use of iterative of reconstructive technique Comparisons: 02/17/2020 FINDINGS: Heart size is normal. No pericardial effusion. Visualized lung bases are clear. No pleural effusion. Liver, spleen, pancreas and adrenals are unremarkable. Gallbladder is absent. No perinephric inflammation or hydronephrosis. No renal or ureteral calculi are identified. Bladder is partially distended and not well evaluated. Uterus is absent. No abnormal adnexal mass. Postoperative changes at the stomach are noted. Large and small bowel are unremarkable. Appendix is not identified. No free intra-abdominal air or fluid. No obstruction. Abdominal aorta has a normal course and caliber. Abdominal vasculature is patent. No enlarged intra-abdominal lymph nodes are identified. No suspicious osseous lesions or acute fractures. IMPRESSION: 1. Moderate amount stool in the colon, correlate for constipation. 2. Postoperative changes at the stomach. Electronically signed by: Jeana Vanegas MD (06/12/2021 8:01 PM) [facility] DICTATED and SIGNED BY: JEANA VANEGAS MD DATE: 06/12/217105LYT4 0 (MADDY COFFEY APRN) Course & Med Decision Making: Course & Med Decision Making Pertinent Labs and Imaging studies reviewed. (See chart for details) See HPI. Alert and oriented x4. Ambulatory steady gait. Speaks in full clear sentences. Skin pink warm and dry. Mucous membranes are moist. Patient states she does not drink know that she drink enough water today. Abdomen is soft but slightly tender to the left lower quadrant. No nystagmus. [id number] intact. No focal bony spinal tenderness. Denies any head and neck pain. 2027: Orthostatics normal. The abdomen pelvis shows constipation. Urinalysis shows some dehydration. Patient does have a white count of 14.7. Awaiting CT of the head and neck due to her syncopal episodes, and chest x-ray. Patient be admitted for syncope of unknown cause. [] (MADDY COFFEY APRN) Dragon Disclaimer: Dragon Disclaimer: This electronic medical record was generated, in whole or in part, using a voice recognition dictation system. (MADDY COFFEY APRN) Departure Departure Impression: Primary Impression: Syncope Qualified Codes: R55 - Syncope and collapse Disposition: ADMITTED INPATIENT Admitting Physician: ROMAN (MADDY COFFEY APRN) Condition: STABLE Referrals: JOE MCKENNA MD (PCP) Attending Signature Attending Signature I have reviewed the PA/ACCESS CLERK's note and plan of care. I was available for consu ltation as needed during the patient's visit in the emergency department. I agree with the clinical impression, plan, and disposition. (DAYAMI CANSECO DO) MADDY COFFEY APRN Jun 12, 2021 18:50 DAYAMI CANSECO DO Jun 13, 2021 01:46
--- NOTE | 2021-06-12 20:04 | RAD ---
Exam: CT of abdomen and pelvis with contrast INDICATION: Left lower pain TECHNIQUE: Sequential axial images through the abdomen and pelvis obtained following the administrati on of 60 mL of Isovue-370 IV contrast. Sagittal and coronal reformatted images were reconstructed fro m the axial data and reviewed. Exposure: One or more of the following in the visualized dose reduction techniques were utilized for this examination: 1. Automated exposure control 2. Adjustment of the MA and/or KV according to patient size 3. Use of iterative of reconstructive technique Comparisons: 02/17/2020 FINDINGS: Heart size is normal. No pericardial effusion. Visualized lung bases are clear. No pleural effusion. Liver, spleen, pancreas and adrenals are unremarkable. Gallbladder is absent. No perinephric inflammation or hydronephrosis. No renal or ureteral calculi are identified. Bladder is partially distended and not well evaluated. Uterus is absent. No abnormal adnexal mass. Postoperative changes at the stomach are noted. Large and small bowel are unremarkable. Appendix is n ot identified. No free intra-abdominal air or fluid. No obstruction. Abdominal aorta has a normal course and caliber. Abdominal vasculature is patent. No enlarged intra-abdominal lymph nodes are identified. No suspicious osseous lesions or acute fractures. IMPRESSION: 1. Moderate amount stool in the colon, correlate for constipation. 2. Postoperative changes at the stomach. Electronically signed by: Jeana Hill MD (06/12/2021 8:01 PM) [facility]
[2021-06-12 20:16] LABS: BILIRUBIN,URINE NEGATIVE (NEG); CLARITY,URINE CLEAR; COLOR,URINE YELLOW; NITRITE,URINE NEGATIVE (NEG); PROTEIN,URINE NEGATIVE (NEG-TRACE); UROBILINOGEN,URINE 0.2 mg/dL (0.2 mg/dL)
[2021-06-12 20:23] LABS: BACTERIA,URINE 0 /HPF (0-FEW); RBC,URINE 0 /HPF (0-2); WBC,URINE OCC /HPF (0-4)
--- NOTE | 2021-06-12 21:04 | RAD ---
EXAMINATION: Chest radiograph. VIEWS: 1 COMPARISON: CT dated 02/17/2020 INDICATION:60 years, Female, syncope. FINDINGS: Normal cardiomediastinal silhouette. No focal consolidation. No pleural effusion or pneumothorax. No acute osseous process. Loop recorder overlies left chest. IMPRESSION: No acute cardiopulmonary process. Electronically signed by: Sd Whitehead MD (06/12/2021 9:01 PM) [facility]
[2021-06-12 22:13] VITALS: BP 150/70
[2021-06-12] MEDS ORDERED: LEVO-101 PO (22:42)
[2021-06-12] MEDS ORDERED: ATOR20TA58 PO (22:42)
[2021-06-12] MEDS ORDERED: LOSA25TA4 PO (22:42)
[2021-06-12] MEDS ORDERED: DAPA10TA PO (22:42)
[2021-06-12] MEDS ORDERED: DULO60CA45 PO (22:42)
[2021-06-12] MEDS ORDERED: FLAS1KIT2 TP (22:42)
[2021-06-12] MEDS ORDERED: GLIM2TAB7 PO (22:42)
[2021-06-12] MEDS ORDERED: GLIM4TAB8 PO (22:42)
[2021-06-12] MEDS ORDERED: SEMA1PEN3 SQ (23:22)
[2021-06-13 02:56] VITALS: BP 103/60
--- NOTE | 2021-06-13 03:51 | EKG ---
[facility] [address] [place] [address] Test Date: 2021-06-12 Test Time: 18:46:04 Pat Name: TOLU ALVAREZ Department: Room: [facility] Gender: F Style Advisor: : 1960 Requested By: MADDY COFFEY Order Number: [id number] Reading MD: César Valenzuela Measurements Intervals [place] Rate: 81 P: 29 SC: 156 QRS: 18 QRSD: 86 T: 41 QT: 366 QTc: 426 Interpretive Statements SINUS RHYTHM RI6.01 Compared to ECG 06/12/2021 16:57:55 No significant changes Electronically Signed On 06-15-2021 9:34:02 [employer] by César Valenzuela
[2021-06-13 07:00] VITALS: BP 110/59
--- NOTE | 2021-06-13 08:03 | RAD ---
CT HEAD AND C-SPINE WO Date: 06/13/2021 7:23 AM Clinical Indication: syncope Comparison: None. Technique: 5 mm axial tomographic images were obtained of the head without contrast. These were view ed on brain and bone windows. CT imaging of the cervical spine was performed without contrast. Coron al and sagittal reformatted images were performed. One or more of the following dose reduction techni ques were utilized: Automated exposure control (AEC), Adjustment of mA and/or kV according to patient size, Use of iterative reconstruction technique such as ASiR, CT scan done according to ALARA and im age gently/image wisely HEAD FINDINGS: The brain parenchyma is normal in attenuation. No intra- or extra-axial mass or fluid collection. No acute hemorrhage. The ventricles are normal in size, shape, and morphology. The dewey-white matter sveta ction is normal. The basilar cisterns are patent. The visualized paranasal sinuses are normal. The visualized portions of the orbits and globes are no rmal. The mastoid air cells are clear. No aggressive osseous lesion or fracture. CERVICAL SPINE FINDINGS: The cervical spine is normally aligned. No acute fracture. No aggressive lytic or blastic osseous les ion. Mild to moderate multilevel degenerative disc height loss. Multilevel disc protrusions and marginal o steophytes results in multilevel spinal canal stenosis. Multilevel uncovertebral and facet arthrosis results in multilevel neural foraminal narrowing. The thyroid gland is normal. No cervical lymphadenopathy. The visualized aerodigestive tract is unrem arkable. The visualized lung apices are clear. IMPRESSION: 1. No acute intracranial process. 2. No acute osseous abnormality of the cervical spine. Electronically signed by: Matty Kaye MD (06/13/2021 8:01 AM) [id number]
--- NOTE | 2021-06-13 08:46 | PDOC1 ---
History and Physical Date of Service: DOS: DATE: 06/13/21 TIME: 08:33 Chief Complaint: Chief Complain: Abdominal pain History of Present Illness: HPI: History obtained from discussion with the ED physician and chart review: 60-year-old female with past medical history of diabetes mellitus type 2, hypothyroidism, cranial carcinoma status post surgery who comes in after syncopal episode. Patient had left lower quadrant pain and called her doctor who told her to come into the ED evaluated. As she was getting ready to leave she had a episode of passing out. said that it was up for about 1 minute after getting ready to leave. At that time abdominal pain was only 2 out of 10 that was sharp in nature. Patient stated that she was also feeling dizzy. Denies nausea vomiting, fevers, chest pain, shortness of breath, headaches, numbness tingling, focal weakness or palpitations. Past Medical/Surgical History: PMH/PSH: Past Medical History: Cancer, Diabetes-Type II, Hypothyroid, Past Surgical History: Cancer Surgery, Cholecystectomy, Hysterectomy, Cranial carcinoma surgery, Gastric sleeve, Allergies: Allergies: Coded Allergies: No Known Drug Allergies (Unverified , 02/17/20) Family History: Family History: Reviewed with no relevant findings Social History: Social History: Smoking Status: Never Smoker Alcohol Use: Occasionally Drug Use: None Current Medications: Current Medications Current Medications Sodium Chloride 1,000 ml @ 1,000 mls/hr Q1H IV Last administered on 06/12/21at 18:37; Start 06/12/21 at 17:45; Stop 06/12/21 at 18:44; Status DC Iohexol (Omnipaque 300 Mg/ml) 60 ml 1X ONCE IV Last administered on 06/12/21at 19:24; Start 06/12/21 at 18:30; Stop 06/12/21 at 18:31; Status DC Info (CONTRAST GIVEN -- Rx MONITORING) 1 each PRN DAILY PRN MC SEE COMMENTS; Start 06/12/21 at 18:30; Stop 06/14/21 at 18:29 Active Scripts Active Reported Ozempic (Semaglutide) 1 Mg/0.75 Ml Pen.injctr 1 Mg SQ QSU Losartan Potassium 25 Mg Tablet 25 Mg PO DAILY Duloxetine Hcl 60 Mg Capsule.dr 2 Cap PO DAILY Freestyle Chip 14 Day Sensor (Flash Glucose Sensor) 1 Each Kit Each TP Q2WKS Farxiga (Dapagliflozin Propanediol) 10 Mg Tablet 1 Tab PO DAILY Atorvastatin Calcium 20 Mg Tablet 1 Tab PO DAILY Glimepiride 4 Mg Tablet 1 Tab PO DAILY Synthroid (Levothyroxine Sodium) 100 Mcg Tablet 1 Tab PO DAILY ROS: Review of Systems Review of System REVIEW OF SYSTEMS: GENERAL: Denies weakness SKIN: No bruising, hair changes or rashes. EYES: No blurred, double or loss of vision. NOSE AND THROAT: No history of nosebleeds, hoarseness or sore throat. HEART: No history of palpitations, chest pain or shortness of breath on exertion. LUNGS: Denies cough, hemoptysis, wheezing or shortness of breath. GASTROINTESTINAL: Positive abdominal pain GENITOURINARY: No history of frequency, urgency, hesitancy or nocturia. NEUROLOGIC: Denies history of numbness, tingling, or tremor. PSYCHIATRIC: No history of panic, anxiety or depression. ENDOCRINE: No history of heat or cold intolerance, polyuria or polydipsia. EXTREMITIES: Denies joint pain, pain on walking or stiffness. Physical Exam: Vital Signs: Vital Signs Date Time Temp Pulse Resp B/P (MAP) Pulse Ox O2 Delivery O2 Flow Rate FiO2 06/13/21 07:30 Room Air 06/13/21 07:00 98.5 78 16 110/59 (76) 98 98.5 Physcial Exam: General: Well developed, well nourished, no acute distress, well appearing HEENT: Pupils equally round and reactive to light, EOMI, no discharge, normal conjunctiva Neck: Supple, no nuchal rigidity, no JVD, trachea midline, no tenderness Cardiac: RRR, no murmurs, no gallops, no rubs Chest/Lungs: CTAB, no wheeze, no rhonchi, no crackles Abdomen: soft, non-distended, no guarding, no peritoneal signs, mild tenderness in the left lower quadrant Back: No tenderness Extremities: no edema, pulses intact, non-tender,capillary refill <3 sec bilateral upper and lower extremities, Neuro: Alert and oriented x 4, no focal deficits, normal speech Labs: Labs: Laboratory Tests Test 06/12/21 17:00 06/12/21 20:10 06/12/21 21:32 White Blood Count 14.7 x10^3/uL (4.0-11.0) Red Blood Count 5.28 x10^6/uL (3.50-5.40) Hemoglobin 16.2 g/dL (12.0-15.5) Hematocrit 48.1 % (36.0-47.0) Mean Corpuscular Volume 91 fL (79-100) Mean Corpuscular Hemoglobin 31 pg (25-35) Mean Corpuscular Hemoglobin Concent 34 g/dL (31-37) Red Cell Distribution Width 13.5 % (11.5-14.5) Platelet Count 206 x10^3/uL (140-400) Neutrophils (%) (Auto) 82 % (31-73) Lymphocytes (%) (Auto) 11 % (24-48) Monocytes (%) (Auto) 5 % (0-9) Eosinophils (%) (Auto) 1 % (0-3) Basophils (%) (Auto) 1 % (0-3) Neutrophils # (Auto) 12.1 x10^3/uL (1.8-7.7) Lymphocytes # (Auto) 1.6 x10^3/uL (1.0-4.8) Monocytes # (Auto) 0.8 x10^3/uL (0.0-1.1) Eosinophils # (Auto) 0.1 x10^3/uL (0.0-0.7) Basophils # (Auto) 0.1 x10^3/uL (0.0-0.2) Sodium Level 139 mmol/L (136-145) Potassium Level 4.1 mmol/L (3.5-5.1) Chloride Level 99 mmol/L (98-107) Carbon Dioxide Level 27 mmol/L (21-32) Anion Gap 13 (6-14) Blood Urea Nitrogen 22 mg/dL (7-20) Creatinine 1.0 mg/dL (0.6-1.0) Estimated GFR (Cockcroft-Gault) 56.7 BUN/Creatinine Ratio 22 (6-20) Glucose Level 198 mg/dL (70-99) Calcium Level 10.0 mg/dL (8.5-10.1) Total Bilirubin 0.9 mg/dL (0.2-1.0) Aspartate Amino Transf (AST/SGOT) 27 U/L (15-37) Alanine Aminotransferase (ALT/SGPT) 43 U/L (14-59) Alkaline Phosphatase 73 U/L (46-116) Troponin I High Sensitivity < 4 ng/L (4-50) Total Protein 8.4 g/dL (6.4-8.2) Albumin 4.5 g/dL (3.4-5.0) Albumin/Globulin Ratio 1.2 (1.0-1.7) Lipase 89 U/L (73-393) Urine Collection Type Unknown Urine Color Yellow Urine Clarity Clear Urine pH 5.0 (<5.0-8.0) Urine Specific [place] >=1.030 (1.000-1.030) Urine Protein Negative mg/dL (NEG-TRACE) Urine Glucose (UA) >=1000 mg/dL (NEG) Urine Ketones (Stick) 15 mg/dL (NEG) Urine Blood Negative (NEG) Urine Nitrite Negative (NEG) Urine Bilirubin Negative (NEG) Urine Urobilinogen Dipstick 0.2 mg/dL (0.2 mg/dL) Urine Leukocyte Esterase Negative (NEG) Urine RBC 0 /HPF (0-2) Urine WBC Occ /HPF (0-4) Urine Squamous Epithelial Cells Mod /LPF Urine Bacteria 0 /HPF (0-FEW) Urine Mucus Mod /LPF SARS-CoV-2 Antigen (Rapid) Negative (NEGATIVE) Laboratory Tests Test 06/12/21 17:00 06/12/21 20:10 06/12/21 21:32 White Blood Count 14.7 x10^3/uL (4.0-11.0) Red Blood Count 5.28 x10^6/uL (3.50-5.40) Hemoglobin 16.2 g/dL (12.0-15.5) Hematocrit 48.1 % (36.0-47.0) Mean Corpuscular Volume 91 fL (79-100) Mean Corpuscular Hemoglobin 31 pg (25-35) Mean Corpuscular Hemoglobin Concent 34 g/dL (31-37) Red Cell Distribution Width 13.5 % (11.5-14.5) Platelet Count 206 x10^3/uL (140-400) Neutrophils (%) (Auto) 82 % (31-73) Lymphocytes (%) (Auto) 11 % (24-48) Monocytes (%) (Auto) 5 % (0-9) Eosinophils (%) (Auto) 1 % (0-3) Basophils (%) (Auto) 1 % (0-3) Neutrophils # (Auto) 12.1 x10^3/uL (1.8-7.7) Lymphocytes # (Auto) 1.6 x10^3/uL (1.0-4.8) Monocytes # (Auto) 0.8 x10^3/uL (0.0-1.1) Eosinophils # (Auto) 0.1 x10^3/uL (0.0-0.7) Basophils # (Auto) 0.1 x10^3/uL (0.0-0.2) Sodium Level 139 mmol/L (136-145) Potassium Level 4.1 mmol/L (3.5-5.1) Chloride Level 99 mmol/L (98-107) Carbon Dioxide Level 27 mmol/L (21-32) Anion Gap 13 (6-14) Blood Urea Nitrogen 22 mg/dL (7-20) Creatinine 1.0 mg/dL (0.6-1.0) Estimated GFR (Cockcroft-Gault) 56.7 BUN/Creatinine Ratio 22 (6-20) Glucose Level 198 mg/dL (70-99) Calcium Level 10.0 mg/dL (8.5-10.1) Total Bilirubin 0.9 mg/dL (0.2-1.0) Aspartate Amino Transf (AST/SGOT) 27 U/L (15-37) Alanine Aminotransferase (ALT/SGPT) 43 U/L (14-59) Alkaline Phosphatase 73 U/L (46-116) Troponin I High Sensitivity < 4 ng/L (4-50) Total Protein 8.4 g/dL (6.4-8.2) Albumin 4.5 g/dL (3.4-5.0) Albumin/Globulin Ratio 1.2 (1.0-1.7) Lipase 89 U/L (73-393) Urine Collection Type Unknown Urine Color Yellow Urine Clarity Clear Urine pH 5.0 (<5.0-8.0) Urine Specific [place] >=1.030 (1.000-1.030) Urine Protein Negative mg/dL (NEG-TRACE) Urine Glucose (UA) >=1000 mg/dL (NEG) Urine Ketones (Stick) 15 mg/dL (NEG) Urine Blood Negative (NEG) Urine Nitrite Negative (NEG) Urine Bilirubin Negative (NEG) Urine Urobilinogen Dipstick 0.2 mg/dL (0.2 mg/dL) Urine Leukocyte Esterase Negative (NEG) Urine RBC 0 /HPF (0-2) Urine WBC Occ /HPF (0-4) Urine Squamous Epithelial Cells Mod /LPF Urine Bacteria 0 /HPF (0-FEW) Urine Mucus Mod /LPF SARS-CoV-2 Antigen (Rapid) Negative (NEGATIVE) Images: Images PROCEDURE: CT ABD PELV W/ IV CONTRST ONLY IMPRESSION: 1. Moderate amount stool in the colon, correlate for constipation. 2. Postoperative changes at the stomach. PROCEDURE: PORTABLE CHEST 1V EXAMINATION: Chest radiograph. VIEWS: 1 COMPARISON: CT dated 02/17/2020 INDICATION:60 years, Female, syncope. FINDINGS: Normal cardiomediastinal silhouette. No focal consolidation. No pleural effusion or pneumothorax. No acute osseous process. Loop recorder overlies left chest. IMPRESSION: No acute cardiopulmonary process. PROCEDURE: CT HEAD AND CERVICAL SPINE WO CT HEAD AND C-SPINE WO Date: 06/13/2021 7:23 AM Clinical Indication: syncope Comparison: None. Technique: 5 mm axial tomographic images were obtained of the head without contrast. These were viewed on brain and bone windows. CT imaging of the cervical spine was performed without contrast. Coronal and sagittal reformatted images were performed. One or more of the following dose reduction techniques were utilized: Automated exposure control (AEC), Adjustment of mA and/or kV according to patient size, Use of iterative reconstruction technique such as ASiR, CT scan done according to ALARA and image gently/image wisely HEAD FINDINGS: The brain parenchyma is normal in attenuation. No intra- or extra-axial mass or fluid collection. No acute hemorrhage. The ventricles are normal in size, shape, and morphology. The dewey-white matter junction is normal. The basilar cisterns are patent. The visualized paranasal sinuses are normal. The visualized portions of the orbits and globes are normal. The mastoid air cells are clear. No aggressive osseous lesion or fracture. CERVICAL SPINE FINDINGS: The cervical spine is normally aligned. No acute fracture. No aggressive lytic or blastic osseous lesion. Mild to moderate multilevel degenerative disc height loss. Multilevel disc protrusions and marginal osteophytes results in multilevel spinal canal stenosis. Multilevel uncovertebral and facet arthrosis results in multilevel neural foraminal narrowing. The thyroid gland is normal. No cervical lymphadenopathy. The visualized aerodigestive tract is unremarkable. The visualized lung apices are clear. IMPRESSION: 1. No acute intracranial process. 2. No acute osseous abnormality of the cervical spine. Assessment/Plan Assessment/Plan Acute abdominal pain, likely due to constipation Hyperglycemia related to her diabetes Prerenal azotemia Polycythemia, possible dehydration History of diabetes mellitus type 2 History of hypothyroidism History of cranial carcinoma surgery Admit to hospitalist services for further management Start bowel regimen, MiraLAX every 6 hours until adequate bowel movement R ISS and Accu-Cheks Continue IV fluids Pending TSH Orthostatic vital signs Fall precautions Continue telemetry monitoring SCD for DVT prophylaxis ADA diet CODE STATUS full Discussed with RN and SW Disposition inpatient management as above DPOA: Justifications for Admission Other Justification AMILCAR AGUIAR MD Jun 13, 2021 08:46
[2021-06-13] MEDS ORDERED: PROCHLORPERAZINE 10 MG/2 ML VIAL. IV PRN (09:00)
[2021-06-13] MEDS ORDERED: ZOLPIDEM 5 MG TABLET. PO PRN (09:00)
[2021-06-13] MEDS ORDERED: LORazepam 0.5 MG TABLET PO PRN (09:00)
[2021-06-13] MEDS ORDERED: ONDANSETRON PF 4 MG/2 ML VIAL. IVP PRN (09:00)
[2021-06-13] MEDS ORDERED: DEXTROSE 50% 25 GM / 50ML DISP.SYRIN. IV PRN (09:00)
[2021-06-13] MEDS ORDERED: ACETAMINOPHEN 325 MG TABLET. PO PRN (09:00)
[2021-06-13] MEDS ORDERED: DOCUSATE SODIUM 100 MG CAPSULE. PO PRN (09:00)
[2021-06-13] MEDS ORDERED: SENNOSIDES 8.6 MG TABLET PO PRN (09:00)
[2021-06-13 11:00] VITALS: BP 116/60
--- NOTE | 2021-06-13 11:20 | SNU/HH DC ---
DISCHARGE ORDERS DISCHARGE INFORMATION: DISCHARGE DATE: Jun 13, 2021 FINAL DIAGNOSIS Problems Medical Problems: (1) Syncope Status: Acute CONDITION ON DISCHARGE: Stable CODE STATUS: Code Status: Full POST DISCHARGE ORDERS: ACTIVITY ORDERS: No restrictions, Resume previous activity WEIGHT BEARING STATUS: As tolerated DIET AFTER DISCHARGE: Cardiac FOLLOW-UP: PHYSICIAN FOLLOW-UP: PCP within 2 weeks of discharge ADDITIONAL FOLLOW-UP: Cardiology as needed. Please call office for loop recorder events LAB ORDERS FOR FOLLOW-UP: Please call office for loop recorder events DISCHARGE MEDICATIONS: Home Meds Reported Medications Semaglutide (Ozempic) 1 Mg/0.75 Ml Pen.injctr, 1 MG SQ QSU for dm 06/12/21 Losartan Potassium (Losartan Potassium) 25 Mg Tablet, 25 MG PO DAILY for HTN 06/12/21 Duloxetine Hcl (DULOXETINE HCL) 60 Mg Capsule.dr, 2 CAP PO DAILY for depression 06/12/21 Flash Glucose Sensor (Freestyle Chip 14 Day Sensor) 1 Each Kit, EACH TP Q2WKS for dm, #1 06/12/21 Dapagliflozin Propanediol (FARXIGA) 10 Mg Tablet, 1 TAB PO DAILY for dm 06/12/21 Atorvastatin Calcium (ATORVASTATIN CALCIUM) 20 Mg Tablet, 1 TAB PO DAILY for hld 06/12/21 Glimepiride (GLIMEPIRIDE) 4 Mg Tablet, 1 TAB PO DAILY for dm 06/12/21 Levothyroxine Sodium (SYNTHROID) 100 Mcg Tablet, 1 TAB PO DAILY for hypothyroid 06/12/21 AMILCAR AGUIAR MD Jun 13, 2021 11:20
[2021-06-13] MEDS ORDERED: INSULIN LISPRO 300 UNITS/3 ML VIAL. SQ SCH (12:00)
[2021-06-13] MEDS ORDERED: POLYETHYLENE GLYCOL 3350 17 GM PACKET. PO SCH (12:00)
--- NOTE | 2021-06-13 13:46 | NUR ---
Discharge Note: [facility] Discharge instructions and discharge home medications reviewed with Patient and a copy given. All questions have been answered and understanding verbalized.
--- NOTE | 2021-06-18 20:25 | PDOC3 ---
[facility]-Discharge Summary Date of Admission: Date of Admission: Jun 13, 2021 Date of Discharge: Date of Discharge: Jun 13, 2021 Discharge Diagnosis: Discharge Diagnosis: Acute abdominal pain, likely due to constipation Hyperglycemia related to her diabetes Prerenal azotemia Polycythemia, possible dehydration History of diabetes mellitus type 2 History of hypothyroidism History of cranial carcinoma surgery Hospital Course: Hospital Course: 60-year-old female with past medical history of diabetes mellitus type 2, hypothyroidism, cranial carcinoma status post surgery who comes in after syncopal episode. Patient had left lower quadrant pain and called her doctor who told her to come into the ED evaluated. As she was getting ready to leave she had a episode of passing out. said that it was up for about 1 minute after getting ready to leave. At that time abdominal pain was only 2 out of 10 that was sharp in nature. Patient stated that she was also feeling dizzy. Denies nausea vomiting, fevers, chest pain, shortness of breath, headaches, numbness tingling, focal weakness or palpitations. By day of discharge, pt was clinically stable and ready for discharge. She had a large BM last night. She feels improved. Rest of hospital course was uneventful Disposition: Disposition/Orders: D/C to Home Activity: Activity: Resume previous activity Diet: Diet: Cardiac Medications: Home Meds Reported Medications Semaglutide (Ozempic) 1 Mg/0.75 Ml Pen.injctr, 1 MG SQ QSU for dm 06/12/21 Losartan Potassium (Losartan Potassium) 25 Mg Tablet, 25 MG PO DAILY for HTN 06/12/21 Duloxetine Hcl (DULOXETINE HCL) 60 Mg Capsule.dr, 2 CAP PO DAILY for depression 06/12/21 Flash Glucose Sensor (Freestyle Chip 14 Day Sensor) 1 Each Kit, EACH TP Q2WKS for dm, #1 06/12/21 Dapagliflozin Propanediol (FARXIGA) 10 Mg Tablet, 1 TAB PO DAILY for dm 06/12/21 Atorvastatin Calcium (ATORVASTATIN CALCIUM) 20 Mg Tablet, 1 TAB PO DAILY for hld 06/12/21 Glimepiride (GLIMEPIRIDE) 4 Mg Tablet, 1 TAB PO DAILY for dm 06/12/21 Levothyroxine Sodium (SYNTHROID) 100 Mcg Tablet, 1 TAB PO DAILY for hypothyroid 06/12/21 Scheduled Atorvastatin Calcium (Atorvastatin Calcium), 1 TAB PO DAILY, (Reported) Dapagliflozin Propanediol (Farxiga), 1 TAB PO DAILY, (Reported) Duloxetine Hcl (Duloxetine Hcl), 2 CAP PO DAILY, (Reported) Glimepiride (Glimepiride), 1 TAB PO DAILY, (Reported) Levothyroxine Sodium (Synthroid), 1 TAB PO DAILY, (Reported) Losartan Potassium (Losartan Potassium), 25 MG PO DAILY, (Reported) Semaglutide (Ozempic), 1 MG SQ QSU, (Reported) Durable Medical Equipment Flash Glucose Sensor (Freestyle Chip 14 Day Sensor), EACH TP Q2WKS, (Reported), (DME) Total Time: Total Time: Total time spent was 33 minutes in preparing scripts, discharge planning with SW and RN, and preparing this discharge summary. Justicifation of Admission Dx: Justifications for Admission: Justification of Admission Dx: Yes Sepsis: End-Organ Dysfunction AMILCAR AGUIAR MD Jun 18, 2021 20:25
--- NOTE | 2021-06-25 09:54 | NUR ---
Late Entry: NaCl bolus given on 06/12/21 at 1837, stopped at 1936.
== END 2021-06-13 13:00 | disposition home or self-care (01) ==
LOC: ER 16:51 → 6 SOUTH 20:27
PROVIDERS: ADMIT Student in an Organized Health Care Education/Training Program; ATTEND Student in an Organized Health Care Education/Training Program
DX: R10.9 Unspecified abdominal pain (principal); Z20.822 Contact with and (suspected) exposure to COVID-19; K59.00 Constipation, unspecified; R55 Syncope and collapse; E11.65 Type 2 diabetes mellitus with hyperglycemia; R79.89 Other specified abnormal findings of blood chemistry; D75.1 Secondary polycythemia; E03.9 Hypothyroidism, unspecified; Z79.899 Other long term (current) drug therapy; Z98.890 Other specified postprocedural states; Z85.89 Personal history of malignant neoplasm of other organs and systems; Z90.49 Acquired absence of other specified parts of digestive tract; Z90.710 Acquired absence of both cervix and uterus
CPT/HCPCS: 36415; 70450; 71045; 72125; 74177; 80053; 81001; 83690; 84439; 84443; 84484; 85025; 87426; 93005; 96360; 99285; G0378; J1815; J7030; Q9967; U0003; U0005; G0379